=== PATIENT | female | born 1935 | race Caucasian/White ===

== ENCOUNTER 2019-09-08 16:25 | Emergency (ER) | payer MEDICARE ==
[2019-09-08 16:57] LABS: Absolute Neutrophil Ct (ANC) 4.42 (1.4-6.9); BASOPHIL % 0.3 % (0.0-0.4); Basophil (Absolute #) 0.02 (0-0.4); Eosinophil % 1.4 % (0.00-5.0); Eosinophil (Absolute #) 0.09 (0-0.5); Hematocrit 37.5 % (35-47); Hemoglobin 12.4 gm/dl (12.0-16.0); Lymphocyte (Absolute #) 1.49 (1.0-4.6); Lymphocytes % 23.1 % (24.0-44.0); Mean Cell Volume 91.5 fl (78-100); Mean Corpuscular Hemoglobin 30.2 pg (26-32); Mean Corpuscular Hgb Concent. 33.1 g/dl (32-36); Monocyte (Absolute #) 0.44 (0.0-1.3); Monocytes % 6.8 % (0.0-12.0); Neutrophil % 68.4 % (36.0-66.0); Platelet Count 205 K/mm3 (150-450); Red Cell Distribution Width 13.4 % (11.5-14.0); White Blood Count 6.5 K/mm3 (4.0-10.5)
[2019-09-08 17:09] LABS: ALBUMIN 4.4 g/dL (3.5-5.0); ANION GAP 14.5 MEQ/L (5-15); BILIRUBIN,TOTAL 0.4 mg/dL (0.2-1.3); Calcium 8.9 mg/dL (8.4-10.2); Creatinine 1 1.31 mg/dL (0.52-1.04); Potassium 4.3 mmol/L (3.5-5.1); Total Protein 7.5 g/dL (6.3-8.2)
--- NOTE | 2019-09-08 17:25 | ERPHSYRPT ---
- History of Present Illness Time Seen by Provider: 09/08/19 16:27 Historian: patient Exam Limitations: no limitations Patient Subjective Stated Complaint: abd pain x 3-4 days/constipation x multiple weeks Triage Nursing Assessment: pt to ED c/o RLQ pain x 3-4 days and constipation x 1 -2 weeks. 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 pain rates 7/10 that does not worsen with palp or radiate. pain worsens with ambulation and position changes. denies NV. audible bowel sounds in all 4 quads , active. heart sounds clear, lung sounds clear and equal bilat, A&Ox3, < 3 sec cap refil. Physician History: Patient is here with right lower quadrant pain. Has been going on for 1 week. No falls no trauma. Patient also describes constipation. States that it is nonradiating. No other injuries. No history of small bowel injury, other abdominal surgery. She still has her appendix and gallbladder. She is not been able to see her PCP. She did call Dr. Riggs's office today. Was sent into the emergency department. Location: RLQ pain Quality: sharp Radiation: none Severity: moderate Duration: 1 week Timing: gradual Modifying factors/associated signs and symptoms: no other injuries or falls Allergies/Adverse Reactions: Penicillins Allergy (Verified 09/08/19 16:51) Hives codeine Adverse Reaction (Verified 09/08/19 16:51) HYPER Home Medications: Aspirin 81 gm Chew [Baby Aspirin 81 mg Chew] 81 mg PO DAILY 01/02/13 [ History] Insulin Glargine [Lantus Insulin] 12 unit SQ DAILY 01/02/13 [History] Losartan Potassium 50 mg [Cozaar 50 MG] 50 mg PO DAILY 01/02/13 [History] Nebivolol HCl 5 MG [Bystolic 5 MG] 10 mg PO HS 01/02/13 [History] Hx Tetanus, Diphtheria Vaccination/Date Given: (unknown) Hx Influenza Vaccination/Date Given: Yes Hx Pneumococcal Vaccination/Date Given: No Travel Risk - International Travel Have you traveled outside of the country in past 3 weeks: No Have you or anyone close to you been diagnosed with or: No Do your reside in a community with a known COVID-19 case?: Yes If Yes where:: [place] - Coronavirus Screening Has patient experienced Coronavirus symptoms: No - Review of Systems Constitutional: No Fever, No Chills Eyes: No Symptoms Ears, Nose, & Throat: No Symptoms Respiratory: No Cough, No Dyspnea Cardiac: No Chest Pain, No Edema, No Syncope Abdominal/Gastrointestinal: Abdominal Pain (RLQ pain ), No Nausea, No Vomiting, No Diarrhea Genitourinary Symptoms: No Dysuria Musculoskeletal: No Back Pain, No Neck Pain Skin: No Rash Neurological: No Dizziness, No Focal Weakness, No Sensory Changes Psychological: No Symptoms Endocrine: No Symptoms All Other Systems: Reviewed and Negative - Past Medical History Pertinent Past Medical History: Yes Neurological History: No Pertinent History ENT History: No Pertinent History Cardiac History: Coronary Artery Disease, Hypertension Respiratory History: No Pertinent History Endocrine Medical History: Diabetes Type II Musculoskeletal History: No Pertinent History GI Medical History: No Pertinent History History: No Pertinent History Psycho-Social History: No Pertinent History Female Reproductive Disorders: No Pertinent History Other Medical History: SKIN ALLERGY - Past Surgical History Past Surgical History: Yes Neuro Surgical History: No Pertinent History Cardiac: CABG Respiratory: No Pertinent History Gastrointestinal: No Pertinent History Genitourinary: No Pertinent History Musculoskeletal: Orthopedic Surgery Female Surgical History: No Pertinent History Other Surgical History: right ankle surgery - Social History Smoking Status: Never smoker Exposure to second hand smoke: No Drug Use: none Patient Lives Alone: No - Nursing Vital Signs Nursing Vital Signs: Initial Vital Signs Temperature 97.6 F 09/08/19 16:31 Pulse Rate 64 09/08/19 16:31 Respiratory Rate 18 09/08/19 16:31 Blood Pressure 215/87 09/08/19 16:31 O2 Sat by Pulse Oximetry 99 09/08/19 16:31 Pain Scale Pain Intensity 6 - Physical Exam General Appearance: no apparent distress, alert Eye Exam: PERRL/EOMI, eyes nml inspection Ears, Nose, Throat Exam: normal ENT inspection, pharynx normal, moist mucous membranes Neck Exam: normal inspection, non-tender, supple, full range of motion Respiratory Exam: normal breath sounds, lungs clear, No respiratory distress Cardiovascular Exam: regular rate/rhythm, normal heart sounds Gastrointestinal/Abdomen Exam: soft, tenderness, other (Lower quadrant tenderness to palpation without rebound or guarding), No mass Back Exam: normal inspection, normal range of motion, No CVA tenderness, No vertebral tenderness Extremity Exam: normal inspection, normal range of motion, pelvis stable Neurologic Exam: alert, oriented x 3, cooperative, normal mood/affect, nml cerebellar function, sensation nml, No motor deficits Skin Exam: normal color, warm, dry SpO2: 99 - Course Nursing assessment & vital signs reviewed: Yes Ordered Tests: Active Orders 24 hr Category Date Time Status IV Insertion STAT Care 09/08/19 16:42 Active Isolation, Initiate & Maintain Q12H Care 09/08/19 16:49 Active ABDOMEN AND PELVIS W/0 CONTRAS [CT] Stat Exams 09/08/19 16:43 Taken CBC W DIFF Stat Lab 09/08/19 16:42 Completed CMP Stat Lab 09/08/19 16:45 Completed LIPASE Stat Lab 09/08/19 16:45 Completed UA W/RFX UR CULTURE Stat Lab 09/08/19 17:43 Completed Lab/Rad Data: Laboratory Result Diagrams 09/08/19 16:42 09/08/19 16:45 Laboratory Results 09/08/19 09/08/19 09/08/19 Range/Units 17:43 16:45 16:42 WBC 6.5 (4.0-10.5) K/mm3 RBC 4.10 (4.1-5.4) M/mm3 Hgb 12.4 (12.0-16.0) gm/dl Hct 37.5 (35-47) % MCV 91.5 (78-100) fl MCH 30.2 (26-32) pg MCHC 33.1 (32-36) g/dl RDW 13.4 (11.5-14.0) % Plt Count 205 (150-450) K/mm3 MPV 10.0 (7.5-11.0) fl Gran % 68.4 H (36.0-66.0) % Eos # (Auto) 0.09 (0-0.5) Absolute Lymphs (auto) 1.49 (1.0-4.6) Absolute Monos (auto) 0.44 (0.0-1.3) Lymphocytes % 23.1 L (24.0-44.0) % Monocytes % 6.8 (0.0-12.0) % Eosinophils % 1.4 (0.00-5.0) % Basophils % 0.3 (0.0-0.4) % Absolute Granulocytes 4.42 (1.4-6.9) Basophils # 0.02 (0-0.4) Sodium 131 L (137-145) mmol/L Potassium 4.3 (3.5-5.1) mmol/L Chloride 95 L (98-107) mmol/L Carbon Dioxide 26 (22-30) mmol/L Anion Gap 14.5 (5-15) MEQ/L BUN 33 H (7-17) mg/dL Creatinine 1.31 H (0.52-1.04) mg/dL Estimated GFR 41.2 ML/MIN Glucose 270 H (74-106) mg/dL Calcium 8.9 (8.4-10.2) mg/dL Total Bilirubin 0.40 (0.2-1.3) mg/dL AST 24 (14-36) U/L ALT 17 (0-35) U/L Alkaline Phosphatase 68 (38-126) U/L Serum Total Protein 7.5 (6.3-8.2) g/dL Albumin 4.4 (3.5-5.0) g/dL Lipase 13 L (23-300) U/L Urine Color YELLOW (YELLOW) Urine Appearance CLEAR (CLEAR) Urine pH 6.0 (5-6) Ur Specific [place] 1.010 (1.005-1.025) Urine Protein NEGATIVE (Negative) Urine Ketones NEGATIVE (NEGATIVE) Urine Blood NEGATIVE (0-5) Marito/ul Urine Nitrite NEGATIVE (NEGATIVE) Urine Bilirubin NEGATIVE (NEGATIVE) Urine Urobilinogen NEGATIVE (0-1) mg/dL Ur Leukocyte Esterase NEGATIVE (NEGATIVE) Urine WBC (Auto) NONE (0-5) /HPF Urine RBC (Auto) NONE (0-2) /HPF U Hyaline Cast (Auto) 0-2 (0-2) /LPF U Epithel Cells (Auto) NONE (FEW) /HPF Urine Bacteria (Auto) NONE (NEGATIVE) /HPF Urine Culture Reflexed NO (NO) Urine Glucose >=500 (NEGATIVE) mg/dL - Progress Progress: improved Progress Note: 09/08/19 17:25 differential diagnosis includes kidney stone, compression fracture, infection, UTI, triple AAA - basic labs including: CBC, lipase, CMP, UA - insert IV for fluids, pain meds, nausea control - consider imaging: CT ab/pelvis 09/08/19 18:46 Labs are unremarkable at this point time. CT scan still pending. Patient was checked out to Dr. Rivera. He will follow-up on CT scan, abdominal reexam. Patient's blood pressure, blood glucose was rechecked. Blood glucose was 247. We will continue to monitor closely. - Departure Departure Disposition: Home Clinical Impression: Abdominal pain Condition: Stable Critical Care Time: No Referrals: RD RIGGS [Primary Care Provider] - Instructions: Acute Abdomen (Belly Pain), Adult (DC)
[2019-09-08 17:53] LABS: Appearance CLEAR (CLEAR); Bilirubin NEGATIVE (NEGATIVE); Blood NEGATIVE Ery/ul (0-5); Glucose >=500 mg/dL (NEGATIVE); Hyaline Casts 0-2 /LPF (0-2); Ketones NEGATIVE (NEGATIVE); Leukocyte Esterase NEGATIVE (NEGATIVE); Nitrite NEGATIVE (NEGATIVE); Protein,Urine Dip NEGATIVE (Negative); Urobilinogen NEGATIVE mg/dL (0-1)
[2019-09-08 18:12] VITALS: PULSE 53
[2019-09-08 19:21] VITALS: BP 202/81; O2SAT 100
--- NOTE | 2019-09-09 09:18 | XRAY ---
Indication: Right lower abdomen/pelvic pain radiating right leg. Multiple contiguous axial images obtained through the abdomen and pelvis without contrast as ordered. Comparison: None Lung bases are clear. Heart is not enlarged. Noncontrasted stomach and bowel loops appear nonobstructed. Normal appendix. Mild diffuse scattered colonic fecal debris throughout. No free fluid/air. Remaining liver, gallbladder, pancreas, spleen, adrenal glands, kidneys, ureters, bladder, and uterus appear unremarkable for noncontrast exam. Heavy scattered aortoiliac calcifications without AAA. Osseous structures intact with osteopenia and mild degenerative changes throughout the spine and both hips. No ventral or inguinal hernias. Impression: 1. Mild diffuse fecal stasis without obstruction, heavy scattered arteriosclerotic disease, and chronic bony findings. 2. Remaining CT abdomen/pelvis without contrast exam is negative.
== END 2019-09-08 19:21 | disposition home or self-care (01) ==
LOC: ED 16:25
DX: R10.9 Unspecified abdominal pain (principal); I10 Essential (primary) hypertension; I25.810 Atherosclerosis of coronary artery bypass graft(s) without angina pectoris; E11.9 Type 2 diabetes mellitus without complications; Z79.899 Other long term (current) drug therapy
CPT/HCPCS: 36000; 36415; 74176; 80053; 81001; 82962; 83690; 85025; 99284

== ENCOUNTER 2022-03-30 12:16 | Observation (INO) | payer MEDICARE ==
--- NOTE | 2022-03-30 12:59 | ERPHSYRPT ---
- History of Present Illness Time Seen by Provider: 03/30/22 12:56 Exam Limitations: no limitations Patient Subjective Stated Complaint: pt here for cough, congestion, chills, weakness for 2 days now, she has not had her meds today, Triage Nursing Assessment: pt alert,[place], resp easy, has dry cough, nasal congestion, skin w/d/p. no edema noted Physician History: Patient is 86-year-old female presents to our ED via EMS for evaluation of generalized weakness. Patient states she awoke this morning experiencing weakness chills and "the shakes". Patient states she has been experiencing a dry cough and congestion. Symptoms are moderate to severe intensity. No specific worsening improving factors. No exposure to obvious sick contacts. Patient denies pain. She voices no other complaints or concerns at this time. Portions of this note were created with voice recognition technology. There may be grammatical, spelling, punctuation or sound alike errors Timing/Duration: today Severity: moderate Modifying Factors: Improves With: nothing Associated Symptoms: denies symptoms Allergies/Adverse Reactions: Penicillins Allergy (Verified 03/30/22 12:25) Hives codeine Adverse Reaction (Verified 03/30/22 12:25) HYPER Home Medications: Aspirin 81 gm Chew [Baby Aspirin 81 mg Chew] 81 mg PO DAILY 01/02/13 [History] Insulin Glargine [Lantus Insulin] 12 unit SQ DAILY 01/02/13 [History] Losartan Potassium 50 mg [Cozaar 50 MG] 50 mg PO DAILY 01/02/13 [History] Nebivolol HCl 5 MG [Bystolic 5 MG] 10 mg PO HS 01/02/13 [History] Hx Tetanus, Diphtheria Vaccination/Date Given: (unknown) Hx Influenza Vaccination/Date Given: No Hx Pneumococcal Vaccination/Date Given: No Travel Risk - International Travel Have you traveled outside of the country in past 3 weeks: No - Coronavirus Screening Are you exhibiting any of the following symptoms?: Yes Symptoms: Cough: New Onset - Vaccine Status Have you recieved a Covid-19 vaccination: Yes Tool And Die Engineer: Unknown - Vaccination Dates Date of 2cond Vaccination (if applicable): 2020 Dates if Unknown: ? - Review of Systems Constitutional: No Symptoms, No Fever, No Chills Eyes: No Symptoms Ears, Nose, & Throat: No Symptoms Respiratory: No Symptoms, No Cough, No Dyspnea Cardiac: No Symptoms, No Chest Pain, No Edema, No Syncope Abdominal/Gastrointestinal: No Symptoms, No Abdominal Pain, No Nausea, No Vomiting, No Diarrhea Genitourinary Symptoms: No Symptoms, No Dysuria Musculoskeletal: No Symptoms, No Back Pain, No Neck Pain Skin: No Symptoms, No Rash Neurological: No Symptoms, No Dizziness, No Focal Weakness, No Sensory Changes Psychological: No Symptoms Endocrine: No Symptoms Hematologic/Lymphatic: No Symptoms Immunological/Allergic: No Symptoms All Other Systems: Reviewed and Negative - Past Medical History Pertinent Past Medical History: Yes Neurological History: No Pertinent History ENT History: No Pertinent History Cardiac History: Coronary Artery Disease, Hypertension Respiratory History: No Pertinent History Endocrine Medical History: Diabetes Type II Musculoskeletal History: No Pertinent History GI Medical History: No Pertinent History History: No Pertinent History Psycho-Social History: No Pertinent History Female Reproductive Disorders: No Pertinent History Other Medical History: SKIN ALLERGY - Past Surgical History Past Surgical History: Yes Neuro Surgical History: No Pertinent History Cardiac: CABG Respiratory: No Pertinent History Gastrointestinal: No Pertinent History Genitourinary: No Pertinent History Musculoskeletal: Orthopedic Surgery Female Surgical History: No Pertinent History Other Surgical History: right ankle surgery - Social History Smoking Status: Never smoker Exposure to second hand smoke: No Drug Use: none Patient Lives Alone: No - Nursing Vital Signs Nursing Vital Signs: Initial Vital Signs Temperature 97.2 F 03/30/22 12:23 Pulse Rate 71 03/30/22 12:23 Respiratory Rate 18 03/30/22 12:23 Blood Pressure 222/84 03/30/22 12:23 O2 Sat by Pulse Oximetry 99 03/30/22 12:23 Pain Scale Pain Intensity 0 - Physical Exam General Appearance: no apparent distress, alert, other (Patient lying in bed. Rigors observed) Eye Exam: PERRL/EOMI, eyes nml inspection Ears, Nose, Throat Exam: normal ENT inspection, TMs normal, pharynx normal, moist mucous membranes Neck Exam: normal inspection, non-tender, supple, full range of motion Respiratory Exam: normal breath sounds, lungs clear, airway intact, No respiratory distress Cardiovascular Exam: regular rate/rhythm, normal heart sounds, normal peripheral pulses Gastrointestinal/Abdomen Exam: soft, normal bowel sounds, No tenderness, No mass Back Exam: normal inspection, normal range of motion, No CVA tenderness, No vertebral tenderness Extremity Exam: normal inspection, normal range of motion, pelvis stable Neurologic Exam: alert, oriented x 3, cooperative, normal mood/affect, nml cerebellar function, nml station & gait, sensation nml, No motor deficits Skin Exam: normal color, warm, dry, No rash Lymphatic Exam: No adenopathy SpO2 Interpretation: normal SpO2: 96 O2 Delivery: Room Air - Course Nursing assessment & vital signs reviewed: Yes - Radiology Exams Chest X-ray Interpretation: Teleradiologist Report (Hyperinflated lungs, CABG, osteopenia degenerative changes) Ordered Tests: Active Orders 24 hr Category Date Time Status Health Technician Hearing STAT Care 03/30/22 12:54 Active EKG-ER Only STAT Care 03/30/22 12:53 Active IV Insertion STAT Care 03/30/22 12:53 Active Pulse Oximetry (ED) STAT Care 03/30/22 12:53 Active CHEST 1 VIEW (PORTABLE) Stat Exams 03/30/22 12:54 Completed CBC W DIFF Stat Lab 03/30/22 13:00 Completed CMP Stat Lab 03/30/22 13:00 Completed TROPONIN Q4H Lab 03/30/22 13:00 Completed TROPONIN Q4H Lab 03/30/22 15:13 Completed TROPONIN Q4H Lab 03/30/22 21:00 Ordered UA W/RFX CULTURE Stat Lab 03/30/22 13:52 Completed Medication Summary Generic Name Dose Route Start Last Admin Trade Name Freq PRN Reason Stop Dose Admin Sodium Chloride 1,000 mls @ 100 mls/hr 03/30/22 13:00 03/30/22 13:42 Sodium Chloride 0.9% 1000 Ml IV 04/29/22 12:59 100 mls/hr .Q10H CLARISA Administration Lab/Rad Data: Laboratory Result Diagrams 03/30/22 13:00 03/30/22 13:00 Laboratory Results 03/30/22 03/30/22 03/30/22 Range/Units 15:13 13:52 13:00 WBC (4.0-10.5) x10^3/uL RBC (4.1-5.4) x10^6/uL Hgb (12.0-16.0) g/dL Hct (35-47) % MCV (78-100) fL MCH (26-32) pg MCHC (32-36) g/dL RDW (11.5-14.0) % Plt Count (150-450) x10^3/uL MPV (7.5-11.0) fL Gran % (36.0-66.0) % Immature Gran % (Auto) (0.00-0.4) % Nucleat RBC Rel Count (0.00-0.1) % Eos # (Auto) (0-0.5) x10^3/uL Immature Gran # (Auto) (0.00-0.03) x10^3u/L Absolute Lymphs (auto) (1.0-4.6) x10^3/uL Absolute Monos (auto) (0.0-1.3) x10^3/uL Absolute Nucleated RBC (0.00-0.01) x10^3u/L Lymphocytes % (24.0-44.0) % Monocytes % (0.0-12.0) % Eosinophils % (0.00-5.0) % Basophils % (0.0-0.4) % Absolute Granulocytes (1.4-6.9) x10^3/uL Basophils # (0-0.4) x10^3/uL Sodium (137-145) mmol/L Potassium (3.5-5.1) mmol/L Chloride (98-107) mmol/L Carbon Dioxide (22-30) mmol/L Anion Gap (5-15) MEQ/L BUN (7-17) mg/dL Creatinine (0.52-1.04) mg/dL Estimated GFR ML/MIN Glucose (74-106) mg/dL Calcium (8.4-10.2) mg/dL Total Bilirubin (0.2-1.3) mg/dL AST (14-36) U/L ALT (0-35) U/L Alkaline Phosphatase (38-126) U/L Troponin I 0.031 0.020 (0.000-0.034) ng/mL Serum Total Protein (6.3-8.2) g/dL Albumin (3.5-5.0) g/dL Urinalys Dipstick Clnc MAIN LAB Urine Color YELLOW (YELLOW) Urine Appearance CLEAR (CLEAR) Urine pH 6.5 (5-6) Ur Specific [place] 1.010 (1.005-1.025) POC Urine Protein Conf NEGATIVE (Negative) Urine Ketones TRACE A (NEGATIVE) Urine Nitrite NEGATIVE (NEGATIVE) Urine Bilirubin NEGATIVE (NEGATIVE) Urine Urobilinogen 0.2 (0-1) mg/dL Urine Leukocytes TRACE A (NEGATIVE) Urine WBC (Auto) NONE (0-5) /HPF Urine RBC (Auto) 0-2 (0-2) /HPF U Epithel Cells (Auto) NONE (FEW) /HPF Urine Bacteria (Auto) NONE (NEGATIVE) /HPF Urine RBC TRACE-LYSED A (0-5) Marito/ul Urine Mucus (Auto) SLIGHT A (NEGATIVE) /HPF Ur Culture Indicated? NO Urine Glucose 100 A (NEGATIVE) mg/dL Influenza Type A Ag (NEGATIVE) Influenza Type B Ag (NEGATIVE) RSV (PCR) (Negative) SARS-CoV-2 (PCR) (NEGATIVE) 03/30/22 03/30/22 03/30/22 Range/Units 13:00 13:00 13:00 WBC 6.7 (4.0-10.5) x10^3/uL RBC 3.78 L (4.1-5.4) x10^6/uL Hgb 11.4 L (12.0-16.0) g/dL Hct 35.0 (35-47) % MCV 92.6 (78-100) fL MCH 30.2 (26-32) pg MCHC 32.6 (32-36) g/dL RDW 13.2 (11.5-14.0) % Plt Count 211 (150-450) x10^3/uL MPV 10.0 (7.5-11.0) fL Gran % 72.0 H (36.0-66.0) % Immature Gran % (Auto) 0.1 (0.00-0.4) % Nucleat RBC Rel Count 0.0 (0.00-0.1) % Eos # (Auto) 0.20 (0-0.5) x10^3/uL Immature Gran # (Auto) 0.01 (0.00-0.03) x10^3u/L Absolute Lymphs (auto) 1.19 (1.0-4.6) x10^3/uL Absolute Monos (auto) 0.45 (0.0-1.3) x10^3/uL Absolute Nucleated RBC 0.00 (0.00-0.01) x10^3u/L Lymphocytes % 17.8 L (24.0-44.0) % Monocytes % 6.7 (0.0-12.0) % Eosinophils % 3.0 (0.00-5.0) % Basophils % 0.4 (0.0-0.4) % Absolute Granulocytes 4.80 (1.4-6.9) x10^3/uL Basophils # 0.03 (0-0.4) x10^3/uL Sodium 128 L (137-145) mmol/L Potassium 3.8 (3.5-5.1) mmol/L Chloride 96 L (98-107) mmol/L Carbon Dioxide 24 (22-30) mmol/L Anion Gap 11.8 (5-15) MEQ/L BUN 21 H (7-17) mg/dL Creatinine 1.08 H (0.52-1.04) mg/dL Estimated GFR 51.2 ML/MIN Glucose 201 H (74-106) mg/dL Calcium 8.7 (8.4-10.2) mg/dL Total Bilirubin 0.50 (0.2-1.3) mg/dL AST 29 (14-36) U/L ALT 14 (0-35) U/L Alkaline Phosphatase 98 (38-126) U/L Troponin I (0.000-0.034) ng/mL Serum Total Protein 7.1 (6.3-8.2) g/dL Albumin 4.1 (3.5-5.0) g/dL Urinalys Dipstick Clnc Urine Color (YELLOW) Urine Appearance (CLEAR) Urine pH (5-6) Ur Specific [place] (1.005-1.025) POC Urine Protein Conf (Negative) Urine Ketones (NEGATIVE) Urine Nitrite (NEGATIVE) Urine Bilirubin (NEGATIVE) Urine Urobilinogen (0-1) mg/dL Urine Leukocytes (NEGATIVE) Urine WBC (Auto) (0-5) /HPF Urine RBC (Auto) (0-2) /HPF U Epithel Cells (Auto) (FEW) /HPF Urine Bacteria (Auto) (NEGATIVE) /HPF Urine RBC (0-5) Marito/ul Urine Mucus (Auto) (NEGATIVE) /HPF Ur Culture Indicated? Urine Glucose (NEGATIVE) mg/dL Influenza Type A Ag NEGATIVE (NEGATIVE) Influenza Type B Ag NEGATIVE (NEGATIVE) RSV (PCR) NEGATIVE (Negative) SARS-CoV-2 (PCR) NEGATIVE (NEGATIVE) - Progress Progress: improved Progress Note: Patient reassessed. Patient feels better. Work-up reveals hyponatremia. IV fluids infusing. COVID RSV influenza negative. Patient's troponins are trending upward. Patient has a history of diabetes and CABG. this elevated troponin may be due to the elevated blood pressure as patient's blood pressure upon arrival was 222 systolic. Patient received her a.m. meds which she did not take today. Blood pressure trending downward now. Patient neurologically intact. In light of her hypertension elevated troponin hyponatremia history of CABG and diabetes we will admit patient for further evaluation and treatment. We will continue to trend patient's troponin. Patient received nitroglycerin w hich will help with her blood pressure. Patient also received aspirin. Case discussed with Dr. Pena who accepts admission to observation. Plan of care discussed with patient. She agrees to admission at [facility] for further evaluation and treatment. Portions of this note were created with voice recognition technology. There may be grammatical, spelling, punctuation or sound alike errors 03/30/22 16:13 Discussed with .: Betsey Will see patient in: hospital (observation) Counseled pt/family regarding: lab results, diagnosis, rad results - Departure Departure Disposition: Observation Clinical Impression: Hyponatremia, Hypertensive emergency, Elevated troponin Condition: Stable Critical Care Time: No Referrals: AFTAB HOLDER, [Primary Care Provider] - Follow up/PCP as directed
[2022-03-30 13:10] LABS: Basophil (Absolute #) 0.03 x10^3/uL (0-0.4); Hemoglobin 11.4 g/dL (12.0-16.0); Lymphocyte (Absolute #) 1.19 x10^3/uL (1.0-4.6); Lymphocytes % 17.8 % (24.0-44.0); Mean Cell Volume 92.6 fL (78-100); Mean Corpuscular Hemoglobin 30.2 pg (26-32); Mean Corpuscular Hgb Concent. 32.6 g/dL (32-36); Monocyte (Absolute #) 0.45 x10^3/uL (0.0-1.3); Monocytes % 6.7 % (0.0-12.0); Platelet Count 211 x10^3/uL (150-450); Red Blood Count 3.78 x10^6/uL (4.1-5.4); Red Cell Distribution Width 13.2 % (11.5-14.0); White Blood Count 6.7 x10^3/uL (4.0-10.5)
--- NOTE | 2022-03-30 13:18 | XRAY ---
Indication: Pneumonia. Comparison: October 14, 2021 Portable chest remains hyperinflated and clear. Heart not enlarged again with CABG. Bony thorax intact again with mild osteopenia and degenerative changes. No new/acute findings.
[2022-03-30] MEDS: Sodium Chloride 0.9% 1000 ML 1,000 ML IV SCH ×2 (13:42→17:49)
[2022-03-30 13:46] LABS: INFLUENZA A NEGATIVE (NEGATIVE); INFLUENZA B NEGATIVE (NEGATIVE); RESPIRATORY SYNCTIAL VIRUS NEGATIVE (Negative); SARS-CoV-2 Xpert Express NEGATIVE (NEGATIVE)
[2022-03-30 14:08] LABS: ALBUMIN 4.1 g/dL (3.5-5.0); BILIRUBIN,TOTAL 0.5 mg/dL (0.2-1.3); Calcium 8.7 mg/dL (8.4-10.2); Creatinine 1 1.08 mg/dL (0.52-1.04); EST GLOMERULAR FILTRATION RATE 51.2 ML/MIN; Potassium 3.8 mmol/L (3.5-5.1); Total Protein 7.1 g/dL (6.3-8.2)
[2022-03-30 14:09] LABS: ANION GAP 11.8 MEQ/L (5-15)
[2022-03-30 14:46] LABS: Appearance CLEAR (CLEAR); Bilirubin NEGATIVE (NEGATIVE); Dipstick done @ ? MAIN LAB; Glucose 100 mg/dL (NEGATIVE); Ketones TRACE (NEGATIVE); Nitrite NEGATIVE (NEGATIVE); Ph 6.5 (5-6); Protein,Urine Dip NEGATIVE (Negative); RBC TRACE-LYSED Ery/ul (0-5); Urobilinogen 0.2 mg/dL (0-1)
[2022-03-30 14:47] LABS: Mucus SLIGHT /HPF (NEGATIVE); RBC 0-2 /HPF (0-2)
[2022-03-30 14:53] LABS: Urine Cultured Indicated? NO
[2022-03-30] MEDS ORDERED: NITRO-BID 2% UD PACKETS TOP ONE (16:09)
[2022-03-30] MEDS ORDERED: BABY ASPIRIN 81 MG CHEW PO ONE (16:09)
[2022-03-30] MEDS ORDERED: BABY ASPIRIN 81 MG CHEW ONE (16:13)
[2022-03-30] MEDS ORDERED: NITRO-BID 2% UD PACKETS ONE (16:13)
[2022-03-30] MEDS ORDERED: TYLENOL 325 MG PO PRN (16:42)
[2022-03-30] MEDS ORDERED: MAALOX ES 30 ML UNIT DOSE PO PRN (16:42)
[2022-03-30] MEDS ORDERED: Zofran 4 MG/2 ML VIAL IV PRN (16:42)
[2022-03-30] MEDS ORDERED: MILK OF MAGNESIA 30 ML PO PRN (16:42)
[2022-03-30] MEDS ORDERED: Senokot-S Tablet PO PRN (16:42)
[2022-03-30] MEDS ORDERED: xanAX 0.5 MG PO PRN (18:27)
[2022-03-30] MEDS ORDERED: Lopressor 25MG Tab PO ONE (18:28)
[2022-03-30] MEDS: HUMALOG SQ PRN ×2 (18:48→23:02)
[2022-03-31] MEDS: Sodium Chloride 0.9% 1000 ML 1,000 ML IV SCH (03:04)
[2022-03-31 06:20] LABS: Risk Ratio 3.4
[2022-03-31 07:40] LABS: Absolute Neutrophil Ct (ANC) 4.13 x10^3/uL (1.4-6.9); Basophil (Absolute #) 0.03 x10^3/uL (0-0.4); Eosinophil % 4.5 % (0.00-5.0); Eosinophil (Absolute #) 0.29 x10^3/uL (0-0.5); Hematocrit 31.4 % (35-47); Hemoglobin 10.2 g/dL (12.0-16.0); Lymphocytes % 23.1 % (24.0-44.0); Mean Cell Volume 93.2 fL (78-100); Mean Corpuscular Hemoglobin 30.3 pg (26-32); Mean Corpuscular Hgb Concent. 32.5 g/dL (32-36); Mean Platelet Volume 10.6 fL (7.5-11.0); Monocyte (Absolute #) 0.52 x10^3/uL (0.0-1.3); Neutrophil % 63.7 % (36.0-66.0); Platelet Count 207 x10^3/uL (150-450); Red Blood Count 3.37 x10^6/uL (4.1-5.4); Red Cell Distribution Width 13.2 % (11.5-14.0); White Blood Count 6.5 x10^3/uL (4.0-10.5)
[2022-03-31 07:46] LABS: ALBUMIN 3.2 g/dL (3.5-5.0); ANION GAP 10.3 MEQ/L (5-15); BILIRUBIN,TOTAL 0.4 mg/dL (0.2-1.3); Calcium 7.9 mg/dL (8.4-10.2); Creatinine 1 0.96 mg/dL (0.52-1.04); EST GLOMERULAR FILTRATION RATE 58.7 ML/MIN; Potassium 4.1 mmol/L (3.5-5.1); Total Protein 5.9 g/dL (6.3-8.2)
[2022-03-31 08:11] LABS: TROPONIN 0.022 ng/mL (0.000-0.034)
[2022-03-31 09:10] LABS: TSH, 3RD Generation 2.26 mIU/L (0.47-4.68)
[2022-03-31] MEDS ORDERED: Lantus Insulin SQ SCH (10:00)
[2022-03-31] MEDS ORDERED: BABY ASPIRIN 81 MG CHEW PO SCH (10:00)
[2022-03-31] MEDS ORDERED: ECOTRIN 81 MG PO SCH (10:00)
[2022-03-31] MEDS ORDERED: NORVASC 5 MG PO SCH (10:00)
[2022-03-31] MEDS ORDERED: Lopressor 25MG Tab PO SCH (10:00)
[2022-03-31 11:55] VITALS: BP 146/65; PULSE 60; O2SAT 98
[2022-03-31] MEDS: HUMALOG SQ PRN (13:12)
--- NOTE | 2022-03-31 14:01 | PCM.SSS ---
History of Present Illness - Chief Complaint Chief Complaint: hyponatremia, hypertensive emergency, elevated troponin History of Present Illness: is a 86 year old female who present to ER C/O feeling weak and "having the shakes". States sinus congestion x 1 week and took a Coricidin then woke feeling badly and called 911. Denies fever or dyspnea or chest pain. PMHX includes HTN,CAD/CABG, DM2 . Patient states she did not take her meds today and B/P was 222 systolic in ER. 2nd troponin was increased from the 1st but not elevated. Home meds given in ER and Nitro paste Patient is admitted to [facility] OBS> - Review of Systems Constitutional: Other (rigor) Eyes: No Symptoms Ears, Nose, & Throat: Nose Congestion, Sinus Drainage Respiratory: No Symptoms Cardiac: No Symptoms Abdominal/Gastrointestinal: No Symptoms Genitourinary Symptoms: No Symptoms Musculoskeletal: No Symptoms Neurological: No Dizziness, No Focal Weakness, No Gait Changes Psychological: No Symptoms Endocrine: No Symptoms, Other (diabetes controlled) Hematologic/Lymphatic: No Symptoms Immunological/Allergic: Other (allergies) Medications & Allergies Home Medications: Home Medication List Aspirin 81 gm Chew [Baby Aspirin 81 mg Chew] 81 mg PO DAILY 01/02/13 [History Confirmed 03/30/22] Insulin Glargine [Lantus Insulin] 12 unit SQ DAILY 01/02/13 [History Confirmed 03/30/22] Amlodipine Besylate 5 mg [Norvasc 5 mg] 5 mg PO DAILY 03/30/22 [History Confirmed 03/30/22] Metoprolol Tartrate 25 mg [Lopressor 25MG Tab] 25 mg PO DAILY 03/30/22 [History Confirmed 03/30/22] Fluticasone Propionate [Flonase NASAL] 1 gm NS UD 30 Days #1 inhaler 03/31/22 [Rx] Allergies/Adverse Reactions: Allergies Allergy/AdvReac Type Severity Reaction Status Date / Time Penicillins Allergy Hives Verified 03/30/22 12:25 codeine AdvReac Verified 03/30/22 12:25 - Past Medical History Past Medical History: Yes Neurological History: No Pertinent History ENT History: No Pertinent History Cardiac History: Coronary Artery Disease, Hypertension Respiratory History: No Pertinent History Endocrine Medical History: Diabetes Type II Musculoskelatal History: No Pertinent History GI Medical History: No Pertinent History History: No Pertinent History Pyscho-Social History: No Pertinent History Reproductive Disorders: No Pertinent History Comment: SKIN cancer removed off of face - Female History Are you now?: No - Past Surgical History Past Surgical History: Yes Neuro Surgical History: No Pertinent History Cardiac History: CABG Respiratory Surgery: No Pertinent History GI Surgical History: No Pertinent History Genitourinary Surgical Hx: No Pertinent History Musculskeletal Surgical Hx: Orthopedic Surgery Female Surgical History: No Pertinent History Other Surgical History: right ankle surgery - Social History Smoking Status: Never smoker Exposure to second hand smoke: No Alcohol: None Drug Use: none - Physical Exam Vital Signs: Vital Signs - 24 hr Temp Pulse Resp BP Pulse Ox 03/31/22 12:00 19 03/31/22 11:54 98.9 F 60 19 146/65 98 03/31/22 08:00 17 03/31/22 07:40 99.1 F 71 17 163/73 95 03/31/22 04:00 97.7 F 66 16 167/74 90 L 03/30/22 23:57 16 03/30/22 23:34 98.0 F 56 L 16 148/68 98 03/30/22 20:00 66 152/70 03/30/22 17:00 71 16 194/87 96 03/30/22 16:44 97.5 F 73 15 228/95 97 03/30/22 16:14 96 03/30/22 16:00 64 16 184/79 98 General Appearance: no apparent distress Neurologic Exam: alert, oriented x 3, cooperative, normal mood/affect Eye Exam: eyes nml inspection Ears, Nose, Throat Exam: moist mucous membranes, other (PND,mild nasal congestion. [place]) Neck Exam: normal inspection Respiratory Exam: normal breath sounds Cardiovascular Exam: regular rate/rhythm Gastrointestinal/Abdomen Exam: soft, normal bowel sounds Back Exam: normal inspection Extremity Exam: normal inspection, No calf tenderness, No pedal edema Skin Exam: normal color, warm, dry Results - Labs Lab/Micro Results: Lab Results-Last 24 Hours 03/30/22 03/30/22 03/30/22 Range/Units 13:00 13:52 15:13 WBC (4.0-10.5) x10^3/uL RBC (4.1-5.4) x10^6/uL Hgb (12.0-16.0) g/dL Hct (35-47) % MCV (78-100) fL MCH (26-32) pg MCHC (32-36) g/dL RDW (11.5-14.0) % Plt Count (150-450) x10^3/uL MPV (7.5-11.0) fL Gran % (36.0-66.0) % Immature Gran % (Auto) (0.00-0.4) % Nucleat RBC Rel Count (0.00-0.1) % Eos # (Auto) (0-0.5) x10^3/uL Immature Gran # (Auto) (0.00-0.03) x10^3u/L Absolute Lymphs (auto) (1.0-4.6) x10^3/uL Absolute Monos (auto) (0.0-1.3) x10^3/uL Absolute Nucleated RBC (0.00-0.01) x10^3u/L Lymphocytes % (24.0-44.0) % Monocytes % (0.0-12.0) % Eosinophils % (0.00-5.0) % Basophils % (0.0-0.4) % Absolute Granulocytes (1.4-6.9) x10^3/uL Basophils # (0-0.4) x10^3/uL Sodium 128 L (137-145) mmol/L Potassium 3.8 (3.5-5.1) mmol/L Chloride 96 L (98-107) mmol/L Carbon Dioxide 24 (22-30) mmol/L Anion Gap 11.8 (5-15) MEQ/L BUN 21 H (7-17) mg/dL Creatinine 1.08 H (0.52-1.04) mg/dL Estimated GFR 51.2 ML/MIN Glucose 201 H (74-106) mg/dL POC Glucometer (74 to 106) mg/dL Calcium 8.7 (8.4-10.2) mg/dL Magnesium (1.6-2.3) mg/dL Total Bilirubin 0.50 (0.2-1.3) mg/dL AST 29 (14-36) U/L ALT 14 (0-35) U/L Alkaline Phosphatase 98 (38-126) U/L Troponin I 0.031 (0.000-0.034) ng/mL Serum Total Protein 7.1 (6.3-8.2) g/dL Albumin 4.1 (3.5-5.0) g/dL Triglycerides (30-150) mg/dL Cholesterol (50-200) mg/dL LDL Cholesterol (30-100) mg/dL HDL Cholesterol (40-60) mg/dL Heart Disease Risk Ratio Vitamin B12 (239-931) pg/mL TSH 3rd Generation (0.47-4.68) mIU/L Urinalys Dipstick Clnc MAIN LAB Urine Color YELLOW (YELLOW) Urine Appearance CLEAR (CLEAR) Urine pH 6.5 (5-6) Ur Specific [place] 1.010 (1.005-1.025) POC Urine Protein Conf NEGATIVE (Negative) Urine Ketones TRACE A (NEGATIVE) Urine Nitrite NEGATIVE (NEGATIVE) Urine Bilirubin NEGATIVE (NEGATIVE) Urine Urobilinogen 0.2 (0-1) mg/dL Urine Leukocytes TRACE A (NEGATIVE) Urine WBC (Auto) NONE (0-5) /HPF Urine RBC (Auto) 0-2 (0-2) /HPF U Epithel Cells (Auto) NONE (FEW) /HPF Urine Bacteria (Auto) NONE (NEGATIVE) /HPF Urine RBC TRACE-LYSED A (0-5) Marito/ul Urine Mucus (Auto) SLIGHT A (NEGATIVE) /HPF Ur Culture Indicated? NO Urine Glucose 100 A (NEGATIVE) mg/dL 03/30/22 03/30/22 03/30/22 Range/Units 17:31 21:24 21:30 WBC (4.0-10.5) x10^3/uL RBC (4.1-5.4) x10^6/uL Hgb (12.0-16.0) g/dL Hct (35-47) % MCV (78-100) fL MCH (26-32) pg MCHC (32-36) g/dL RDW (11.5-14.0) % Plt Count (150-450) x10^3/uL MPV (7.5-11.0) fL Gran % (36.0-66.0) % Immature Gran % (Auto) (0.00-0.4) % Nucleat RBC Rel Count (0.00-0.1) % Eos # (Auto) (0-0.5) x10^3/uL Immature Gran # (Auto) (0.00-0.03) x10^3u/L Absolute Lymphs (auto) (1.0-4.6) x10^3/uL Absolute Monos (auto) (0.0-1.3) x10^3/uL Absolute Nucleated RBC (0.00-0.01) x10^3u/L Lymphocytes % (24.0-44.0) % Monocytes % (0.0-12.0) % Eosinophils % (0.00-5.0) % Basophils % (0.0-0.4) % Absolute Granulocytes (1.4-6.9) x10^3/uL Basophils # (0-0.4) x10^3/uL Sodium (137-145) mmol/L Potassium (3.5-5.1) mmol/L Chloride (98-107) mmol/L Carbon Dioxide (22-30) mmol/L Anion Gap (5-15) MEQ/L BUN (7-17) mg/dL Creatinine (0.52-1.04) mg/dL Estimated GFR ML/MIN Glucose (74-106) mg/dL POC Glucometer 307 H 278 H (74 to 106) mg/dL Calcium (8.4-10.2) mg/dL Magnesium (1.6-2.3) mg/dL Total Bilirubin (0.2-1.3) mg/dL AST (14-36) U/L ALT (0-35) U/L Alkaline Phosphatase (38-126) U/L Troponin I 0.029 (0.000-0.034) ng/mL Serum Total Protein (6.3-8.2) g/dL Albumin (3.5-5.0) g/dL Triglycerides (30-150) mg/dL Cholesterol (50-200) mg/dL LDL Cholesterol (30-100) mg/dL HDL Cholesterol (40-60) mg/dL Heart Disease Risk Ratio Vitamin B12 (239-931) pg/mL TSH 3rd Generation (0.47-4.68) mIU/L Urinalys Dipstick Clnc Urine Color (YELLOW) Urine Appearance (CLEAR) Urine pH (5-6) Ur Specific [place] (1.005-1.025) POC Urine Protein Conf (Negative) Urine Ketones (NEGATIVE) Urine Nitrite (NEGATIVE) Urine Bilirubin (NEGATIVE) Urine Urobilinogen (0-1) mg/dL Urine Leukocytes (NEGATIVE) Urine WBC (Auto) (0-5) /HPF Urine RBC (Auto) (0-2) /HPF U Epithel Cells (Auto) (FEW) /HPF Urine Bacteria (Auto) (NEGATIVE) /HPF Urine RBC (0-5) Marito/ul Urine Mucus (Auto) (NEGATIVE) /HPF Ur Culture Indicated? Urine Glucose (NEGATIVE) mg/dL 03/31/22 03/31/22 03/31/22 Range/Units 04:30 04:30 04:30 WBC 6.5 (4.0-10.5) x10^3/uL RBC 3.37 L (4.1-5.4) x10^6/uL Hgb 10.2 L (12.0-16.0) g/dL Hct 31.4 L (35-47) % MCV 93.2 (78-100) fL MCH 30.3 (26-32) pg MCHC 32.5 (32-36) g/dL RDW 13.2 (11.5-14.0) % Plt Count 207 (150-450) x10^3/uL MPV 10.6 (7.5-11.0) fL Gran % 63.7 (36.0-66.0) % Immature Gran % (Auto) 0.2 (0.00-0.4) % Nucleat RBC Rel Count 0.0 (0.00-0.1) % Eos # (Auto) 0.29 (0-0.5) x10^3/uL Immature Gran # (Auto) 0.01 (0.00-0.03) x10^3u/L Absolute Lymphs (auto) 1.50 (1.0-4.6) x10^3/uL Absolute Monos (auto) 0.52 (0.0-1.3) x10^3/uL Absolute Nucleated RBC 0.00 (0.00-0.01) x10^3u/L Lymphocytes % 23.1 L (24.0-44.0) % Monocytes % 8.0 (0.0-12.0) % Eosinophils % 4.5 (0.00-5.0) % Basophils % 0.5 (0.0-0.4) % Absolute Granulocytes 4.13 (1.4-6.9) x10^3/uL Basophils # 0.03 (0-0.4) x10^3/uL Sodium 134 L (137-145) mmol/L Potassium 4.1 (3.5-5.1) mmol/L Chloride 102 (98-107) mmol/L Carbon Dioxide 25 (22-30) mmol/L Anion Gap 10.3 (5-15) MEQ/L BUN 19 H (7-17) mg/dL Creatinine 0.96 (0.52-1.04) mg/dL Estimated GFR 58.7 ML/MIN Glucose 78 (74-106) mg/dL POC Glucometer (74 to 106) mg/dL Calcium 7.9 L (8.4-10.2) mg/dL Magnesium (1.6-2.3) mg/dL Total Bilirubin 0.40 (0.2-1.3) mg/dL AST 20 (14-36) U/L ALT 12 (0-35) U/L Alkaline Phosphatase 84 (38-126) U/L Troponin I (0.000-0.034) ng/mL Serum Total Protein 5.9 L (6.3-8.2) g/dL Albumin 3.2 L (3.5-5.0) g/dL Triglycerides 86 (30-150) mg/dL Cholesterol 124 (50-200) mg/dL LDL Cholesterol 69 (30-100) mg/dL HDL Cholesterol 36 L (40-60) mg/dL Heart Disease Risk Ratio 3.4 Vitamin B12 (239-931) pg/mL TSH 3rd Generation (0.47-4.68) mIU/L Urinalys Dipstick Clnc Urine Color (YELLOW) Urine Appearance (CLEAR) Urine pH (5-6) Ur Specific [place] (1.005-1.025) POC Urine Protein Conf (Negative) Urine Ketones (NEGATIVE) Urine Nitrite (NEGATIVE) Urine Bilirubin (NEGATIVE) Urine Urobilinogen (0-1) mg/dL Urine Leukocytes (NEGATIVE) Urine WBC (Auto) (0-5) /HPF Urine RBC (Auto) (0-2) /HPF U Epithel Cells (Auto) (FEW) /HPF Urine Bacteria (Auto) (NEGATIVE) /HPF Urine RBC (0-5) Marito/ul Urine Mucus (Auto) (NEGATIVE) /HPF Ur Culture Indicated? Urine Glucose (NEGATIVE) mg/dL 03/31/22 03/31/22 03/31/22 Range/Units 04:30 04:30 06:45 WBC (4.0-10.5) x10^3/uL RBC (4.1-5.4) x10^6/uL Hgb (12.0-16.0) g/dL Hct (35-47) % MCV (78-100) fL MCH (26-32) pg MCHC (32-36) g/dL RDW (11.5-14.0) % Plt Count (150-450) x10^3/uL MPV (7.5-11.0) fL Gran % (36.0-66.0) % Immature Gran % (Auto) (0.00-0.4) % Nucleat RBC Rel Count (0.00-0.1) % Eos # (Auto) (0-0.5) x10^3/uL Immature Gran # (Auto) (0.00-0.03) x10^3u/L Absolute Lymphs (auto) (1.0-4.6) x10^3/uL Absolute Monos (auto) (0.0-1.3) x10^3/uL Absolute Nucleated RBC (0.00-0.01) x10^3u/L Lymphocytes % (24.0-44.0) % Monocytes % (0.0-12.0) % Eosinophils % (0.00-5.0) % Basophils % (0.0-0.4) % Absolute Granulocytes (1.4-6.9) x10^3/uL Basophils # (0-0.4) x10^3/uL Sodium (137-145) mmol/L Potassium (3.5-5.1) mmol/L Chloride (98-107) mmol/L Carbon Dioxide (22-30) mmol/L Anion Gap (5-15) MEQ/L BUN (7-17) mg/dL Creatinine (0.52-1.04) mg/dL Estimated GFR ML/MIN Glucose (74-106) mg/dL POC Glucometer 114 H (74 to 106) mg/dL Calcium (8.4-10.2) mg/dL Magnesium 2.0 (1.6-2.3) mg/dL Total Bilirubin (0.2-1.3) mg/dL AST (14-36) U/L ALT (0-35) U/L Alkaline Phosphatase (38-126) U/L Troponin I 0.022 (0.000-0.034) ng/mL Serum Total Protein (6.3-8.2) g/dL Albumin (3.5-5.0) g/dL Triglycerides (30-150) mg/dL Cholesterol (50-200) mg/dL LDL Cholesterol (30-100) mg/dL HDL Cholesterol (40-60) mg/dL Heart Disease Risk Ratio Vitamin B12 576 (239-931) pg/mL TSH 3rd Generation 2.260 (0.47-4.68) mIU/L Urinalys Dipstick Clnc Urine Color (YELLOW) Urine Appearance (CLEAR) Urine pH (5-6) Ur Specific [place] (1.005-1.025) POC Urine Protein Conf (Negative) Urine Ketones (NEGATIVE) Urine Nitrite (NEGATIVE) Urine Bilirubin (NEGATIVE) Urine Urobilinogen (0-1) mg/dL Urine Leukocytes (NEGATIVE) Urine WBC (Auto) (0-5) /HPF Urine RBC (Auto) (0-2) /HPF U Epithel Cells (Auto) (FEW) /HPF Urine Bacteria (Auto) (NEGATIVE) /HPF Urine RBC (0-5) Marito/ul Urine Mucus (Auto) (NEGATIVE) /HPF Ur Culture Indicated? Urine Glucose (NEGATIVE) mg/dL // Range/Units 10:45 WBC (4.0-10.5) x10^3/uL RBC (4.1-5.4) x10^6/uL Hgb (12.0-16.0) g/dL Hct (35-47) % MCV (78-100) fL MCH (26-32) pg MCHC (32-36) g/dL RDW (11.5-14.0) % Plt Count (150-450) x10^3/uL MPV (7.5-11.0) fL Gran % (36.0-66.0) % Immature Gran % (Auto) (0.00-0.4) % Nucleat RBC Rel Count (0.00-0.1) % Eos # (Auto) (0-0.5) x10^3/uL Immature Gran # (Auto) (0.00-0.03) x10^3u/L Absolute Lymphs (auto) (1.0-4.6) x10^3/uL Absolute Monos (auto) (0.0-1.3) x10^3/uL Absolute Nucleated RBC (0.00-0.01) x10^3u/L Lymphocytes % (24.0-44.0) % Monocytes % (0.0-12.0) % Eosinophils % (0.00-5.0) % Basophils % (0.0-0.4) % Absolute Granulocytes (1.4-6.9) x10^3/uL Basophils # (0-0.4) x10^3/uL Sodium (137-145) mmol/L Potassium (3.5-5.1) mmol/L Chloride (98-107) mmol/L Carbon Dioxide (22-30) mmol/L Anion Gap (5-15) MEQ/L BUN (7-17) mg/dL Creatinine (0.52-1.04) mg/dL Estimated GFR ML/MIN Glucose (74-106) mg/dL POC Glucometer 262 H (74 to 106) mg/dL Calcium (8.4-10.2) mg/dL Magnesium (1.6-2.3) mg/dL Total Bilirubin (0.2-1.3) mg/dL AST (14-36) U/L ALT (0-35) U/L Alkaline Phosphatase (38-126) U/L Troponin I (0.000-0.034) ng/mL Serum Total Protein (6.3-8.2) g/dL Albumin (3.5-5.0) g/dL Triglycerides (30-150) mg/dL Cholesterol (50-200) mg/dL LDL Cholesterol (30-100) mg/dL HDL Cholesterol (40-60) mg/dL Heart Disease Risk Ratio Vitamin B12 (239-931) pg/mL TSH 3rd Generation (0.47-4.68) mIU/L Urinalys Dipstick Clnc Urine Color (YELLOW) Urine Appearance (CLEAR) Urine pH (5-6) Ur Specific [place] (1.005-1.025) POC Urine Protein Conf (Negative) Urine Ketones (NEGATIVE) Urine Nitrite (NEGATIVE) Urine Bilirubin (NEGATIVE) Urine Urobilinogen (0-1) mg/dL Urine Leukocytes (NEGATIVE) Urine WBC (Auto) (0-5) /HPF Urine RBC (Auto) (0-2) /HPF U Epithel Cells (Auto) (FEW) /HPF Urine Bacteria (Auto) (NEGATIVE) /HPF Urine RBC (0-5) Marito/ul Urine Mucus (Auto) (NEGATIVE) /HPF Ur Culture Indicated? Urine Glucose (NEGATIVE) mg/dL Accuchecks Date 03/31/22 Date 03/31/22 Date 03/30/22 Date 03/30/22 Time 11:21 Time 07:40 Time 17:34 - Radiology Impressions Radiology Exams & Impressions: Radiology Procedures Category Date Time Status CHEST 1 VIEW (PORTABLE) Stat Exams 03/30/22 12:54 Completed - Other Procedures and Tests Respiratory Therapy 04/01/22 05:00 EKG ONCE 04/02/22 05:00 EKG ONCE Assessment/Plan (1) Hyponatremia Status: Resolved Code(s): E87.1 - HYPO-OSMOLALITY AND HYPONATREMIA (2) CAD (coronary artery disease) Status: Chronic Qualifiers: Associated angina: without angina Code(s): I25.10 - ATHSCL HEART DISEASE OF [place] CORONARY ARTERY W/O ANG PCTRS (3) S/P CABG (coronary artery bypass graft) Status: Chronic Code(s): Z95.1 - PRESENCE OF AORTOCORONARY BYPASS GRAFT (4) Elevated troponin Status: Resolved Code(s): R77.8 - OTHER SPECIFIED ABNORMALITIES OF PLASMA PROTEINS Hospital Summary - Hospital Course Hospital Course: Patient was observed overnight on med surg. Her B/P improved with Nitro paste given in ER and continuation of her home meds. She was anxious and Xanax dose given at bedtime. She slept well and B/P normal day of discharge. Appetite good and able to get up and walk in the room without any problems.Troponin retested and was normal. Data Analyst Report Writer further "shakey spells". Daughter and at the bedside . Patient is at her baseline and will be discharged to the care of her family.Follow up appt with PCP scheduled. Patient will monitor her B/P at home and bring cuff and readings to appt. - Vitals & Intake/Output Vital Signs: Vital Signs Temperature 98.9 F 03/31/22 11:54 Pulse Rate 60 03/31/22 11:54 Respiratory Rate 19 03/31/22 12:00 Blood Pressure 146/65 03/31/22 11:54 O2 Sat by Pulse Oximetry 98 03/31/22 11:54 Intake & Output: Intake & Output 03/29/22 03/30/22 03/31/22 04/01/22 11:59 11:59 11:59 11:59 Intake Total 1794 240 Balance 1794 240 Weight 63.5 kg - Lab Result Diagrams: 03/31/22 04:30 03/31/22 04:30 Lab Results-Last 24 Hrs: Lab Results-Last 24 Hours 03/30/22 03/30/22 03/30/22 Range/Units 13:00 13:52 15:13 WBC (4.0-10.5) x10^3/uL RBC (4.1-5.4) x10^6/uL Hgb (12.0-16.0) g/dL Hct (35-47) % MCV (78-100) fL MCH (26-32) pg MCHC (32-36) g/dL RDW (11.5-14.0) % Plt Count (150-450) x10^3/uL MPV (7.5-11.0) fL Gran % (36.0-66.0) % Immature Gran % (Auto) (0.00-0.4) % Nucleat RBC Rel Count (0.00-0.1) % Eos # (Auto) (0-0.5) x10^3/uL Immature Gran # (Auto) (0.00-0.03) x10^3u/L Absolute Lymphs (auto) (1.0-4.6) x10^3/uL Absolute Monos (auto) (0.0-1.3) x10^3/uL Absolute Nucleated RBC (0.00-0.01) x10^3u/L Lymphocytes % (24.0-44.0) % Monocytes % (0.0-12.0) % Eosinophils % (0.00-5.0) % Basophils % (0.0-0.4) % Absolute Granulocytes (1.4-6.9) x10^3/uL Basophils # (0-0.4) x10^3/uL Sodium 128 L (137-145) mmol/L Potassium 3.8 (3.5-5.1) mmol/L Chloride 96 L (98-107) mmol/L Carbon Dioxide 24 (22-30) mmol/L Anion Gap 11.8 (5-15) MEQ/L BUN 21 H (7-17) mg/dL Creatinine 1.08 H (0.52-1.04) mg/dL Estimated GFR 51.2 ML/MIN Glucose 201 H (74-106) mg/dL POC Glucometer (74 to 106) mg/dL Calcium 8.7 (8.4-10.2) mg/dL Magnesium (1.6-2.3) mg/dL Total Bilirubin 0.50 (0.2-1.3) mg/dL AST 29 (14-36) U/L ALT 14 (0-35) U/L Alkaline Phosphatase 98 (38-126) U/L Troponin I 0.031 (0.000-0.034) ng/mL Serum Total Protein 7.1 (6.3-8.2) g/dL Albumin 4.1 (3.5-5.0) g/dL Triglycerides (30-150) mg/dL Cholesterol (50-200) mg/dL LDL Cholesterol (30-100) mg/dL HDL Cholesterol (40-60) mg/dL Heart Disease Risk Ratio Vitamin B12 (239-931) pg/mL TSH 3rd Generation (0.47-4.68) mIU/L Urinalys Dipstick Clnc MAIN LAB Urine Color YELLOW (YELLOW) Urine Appearance CLEAR (CLEAR) Urine pH 6.5 (5-6) Ur Specific [place] 1.010 (1.005-1.025) POC Urine Protein Conf NEGATIVE (Negative) Urine Ketones TRACE A (NEGATIVE) Urine Nitrite NEGATIVE (NEGATIVE) Urine Bilirubin NEGATIVE (NEGATIVE) Urine Urobilinogen 0.2 (0-1) mg/dL Urine Leukocytes TRACE A (NEGATIVE) Urine WBC (Auto) NONE (0-5) /HPF Urine RBC (Auto) 0-2 (0-2) /HPF U Epithel Cells (Auto) NONE (FEW) /HPF Urine Bacteria (Auto) NONE (NEGATIVE) /HPF Urine RBC TRACE-LYSED A (0-5) Marito/ul Urine Mucus (Auto) SLIGHT A (NEGATIVE) /HPF Ur Culture Indicated? NO Urine Glucose 100 A (NEGATIVE) mg/dL 03/30/22 03/30/22 03/30/22 Range/Units 17:31 21:24 21:30 WBC (4.0-10.5) x10^3/uL RBC (4.1-5.4) x10^6/uL Hgb (12.0-16.0) g/dL Hct (35-47) % MCV (78-100) fL MCH (26-32) pg MCHC (32-36) g/dL RDW (11.5-14.0) % Plt Count (150-450) x10^3/uL MPV (7.5-11.0) fL Gran % (36.0-66.0) % Immature Gran % (Auto) (0.00-0.4) % Nucleat RBC Rel Count (0.00-0.1) % Eos # (Auto) (0-0.5) x10^3/uL Immature Gran # (Auto) (0.00-0.03) x10^3u/L Absolute Lymphs (auto) (1.0-4.6) x10^3/uL Absolute Monos (auto) (0.0-1.3) x10^3/uL Absolute Nucleated RBC (0.00-0.01) x10^3u/L Lymphocytes % (24.0-44.0) % Monocytes % (0.0-12.0) % Eosinophils % (0.00-5.0) % Basophils % (0.0-0.4) % Absolute Granulocytes (1.4-6.9) x10^3/uL Basophils # (0-0.4) x10^3/uL Sodium (137-145) mmol/L Potassium (3.5-5.1) mmol/L Chloride (98-107) mmol/L Carbon Dioxide (22-30) mmol/L Anion Gap (5-15) MEQ/L BUN (7-17) mg/dL Creatinine (0.52-1.04) mg/dL Estimated GFR ML/MIN Glucose (74-106) mg/dL POC Glucometer 307 H 278 H (74 to 106) mg/dL Calcium (8.4-10.2) mg/dL Magnesium (1.6-2.3) mg/dL Total Bilirubin (0.2-1.3) mg/dL AST (14-36) U/L ALT (0-35) U/L Alkaline Phosphatase (38-126) U/L Troponin I 0.029 (0.000-0.034) ng/mL Serum Total Protein (6.3-8.2) g/dL Albumin (3.5-5.0) g/dL Triglycerides (30-150) mg/dL Cholesterol (50-200) mg/dL LDL Cholesterol (30-100) mg/dL HDL Cholesterol (40-60) mg/dL Heart Disease Risk Ratio Vitamin B12 (239-931) pg/mL TSH 3rd Generation (0.47-4.68) mIU/L Urinalys Dipstick Clnc Urine Color (YELLOW) Urine Appearance (CLEAR) Urine pH (5-6) Ur Specific [place] (1.005-1.025) POC Urine Protein Conf (Negative) Urine Ketones (NEGATIVE) Urine Nitrite (NEGATIVE) Urine Bilirubin (NEGATIVE) Urine Urobilinogen (0-1) mg/dL Urine Leukocytes (NEGATIVE) Urine WBC (Auto) (0-5) /HPF Urine RBC (Auto) (0-2) /HPF U Epithel Cells (Auto) (FEW) /HPF Urine Bacteria (Auto) (NEGATIVE) /HPF Urine RBC (0-5) Marito/ul Urine Mucus (Auto) (NEGATIVE) /HPF Ur Culture Indicated? Urine Glucose (NEGATIVE) mg/dL 03/31/22 03/31/22 03/31/22 Range/Units 04:30 04:30 04:30 WBC 6.5 (4.0-10.5) x10^3/uL RBC 3.37 L (4.1-5.4) x10^6/uL Hgb 10.2 L (12.0-16.0) g/dL Hct 31.4 L (35-47) % MCV 93.2 (78-100) fL MCH 30.3 (26-32) pg MCHC 32.5 (32-36) g/dL RDW 13.2 (11.5-14.0) % Plt Count 207 (150-450) x10^3/uL MPV 10.6 (7.5-11.0) fL Gran % 63.7 (36.0-66.0) % Immature Gran % (Auto) 0.2 (0.00-0.4) % Nucleat RBC Rel Count 0.0 (0.00-0.1) % Eos # (Auto) 0.29 (0-0.5) x10^3/uL Immature Gran # (Auto) 0.01 (0.00-0.03) x10^3u/L Absolute Lymphs (auto) 1.50 (1.0-4.6) x10^3/uL Absolute Monos (auto) 0.52 (0.0-1.3) x10^3/uL Absolute Nucleated RBC 0.00 (0.00-0.01) x10^3u/L Lymphocytes % 23.1 L (24.0-44.0) % Monocytes % 8.0 (0.0-12.0) % Eosinophils % 4.5 (0.00-5.0) % Basophils % 0.5 (0.0-0.4) % Absolute Granulocytes 4.13 (1.4-6.9) x10^3/uL Basophils # 0.03 (0-0.4) x10^3/uL Sodium 134 L (137-145) mmol/L Potassium 4.1 (3.5-5.1) mmol/L Chloride 102 (98-107) mmol/L Carbon Dioxide 25 (22-30) mmol/L Anion Gap 10.3 (5-15) MEQ/L BUN 19 H (7-17) mg/dL Creatinine 0.96 (0.52-1.04) mg/dL Estimated GFR 58.7 ML/MIN Glucose 78 (74-106) mg/dL POC Glucometer (74 to 106) mg/dL Calcium 7.9 L (8.4-10.2) mg/dL Magnesium (1.6-2.3) mg/dL Total Bilirubin 0.40 (0.2-1.3) mg/dL AST 20 (14-36) U/L ALT 12 (0-35) U/L Alkaline Phosphatase 84 (38-126) U/L Troponin I (0.000-0.034) ng/mL Serum Total Protein 5.9 L (6.3-8.2) g/dL Albumin 3.2 L (3.5-5.0) g/dL Triglycerides 86 (30-150) mg/dL Cholesterol 124 (50-200) mg/dL LDL Cholesterol 69 (30-100) mg/dL HDL Cholesterol 36 L (40-60) mg/dL Heart Disease Risk Ratio 3.4 Vitamin B12 (239-931) pg/mL TSH 3rd Generation (0.47-4.68) mIU/L Urinalys Dipstick Clnc Urine Color (YELLOW) Urine Appearance (CLEAR) Urine pH (5-6) Ur Specific [place] (1.005-1.025) POC Urine Protein Conf (Negative) Urine Ketones (NEGATIVE) Urine Nitrite (NEGATIVE) Urine Bilirubin (NEGATIVE) Urine Urobilinogen (0-1) mg/dL Urine Leukocytes (NEGATIVE) Urine WBC (Auto) (0-5) /HPF Urine RBC (Auto) (0-2) /HPF U Epithel Cells (Auto) (FEW) /HPF Urine Bacteria (Auto) (NEGATIVE) /HPF Urine RBC (0-5) Marito/ul Urine Mucus (Auto) (NEGATIVE) /HPF Ur Culture Indicated? Urine Glucose (NEGATIVE) mg/dL 03/31/22 03/31/22 03/31/22 Range/Units 04:30 04:30 06:45 WBC (4.0-10.5) x10^3/uL RBC (4.1-5.4) x10^6/uL Hgb (12.0-16.0) g/dL Hct (35-47) % MCV (78-100) fL MCH (26-32) pg MCHC (32-36) g/dL RDW (11.5-14.0) % Plt Count (150-450) x10^3/uL MPV (7.5-11.0) fL Gran % (36.0-66.0) % Immature Gran % (Auto) (0.00-0.4) % Nucleat RBC Rel Count (0.00-0.1) % Eos # (Auto) (0-0.5) x10^3/uL Immature Gran # (Auto) (0.00-0.03) x10^3u/L Absolute Lymphs (auto) (1.0-4.6) x10^3/uL Absolute Monos (auto) (0.0-1.3) x10^3/uL Absolute Nucleated RBC (0.00-0.01) x10^3u/L Lymphocytes % (24.0-44.0) % Monocytes % (0.0-12.0) % Eosinophils % (0.00-5.0) % Basophils % (0.0-0.4) % Absolute Granulocytes (1.4-6.9) x10^3/uL Basophils # (0-0.4) x10^3/uL Sodium (137-145) mmol/L Potassium (3.5-5.1) mmol/L Chloride (98-107) mmol/L Carbon Dioxide (22-30) mmol/L Anion Gap (5-15) MEQ/L BUN (7-17) mg/dL Creatinine (0.52-1.04) mg/dL Estimated GFR ML/MIN Glucose (74-106) mg/dL POC Glucometer 114 H (74 to 106) mg/dL Calcium (8.4-10.2) mg/dL Magnesium 2.0 (1.6-2.3) mg/dL Total Bilirubin (0.2-1.3) mg/dL AST (14-36) U/L ALT (0-35) U/L Alkaline Phosphatase (38-126) U/L Troponin I 0.022 (0.000-0.034) ng/mL Serum Total Protein (6.3-8.2) g/dL Albumin (3.5-5.0) g/dL Triglycerides (30-150) mg/dL Cholesterol (50-200) mg/dL LDL Cholesterol (30-100) mg/dL HDL Cholesterol (40-60) mg/dL Heart Disease Risk Ratio Vitamin B12 576 (239-931) pg/mL TSH 3rd Generation 2.260 (0.47-4.68) mIU/L Urinalys Dipstick Clnc Urine Color (YELLOW) Urine Appearance (CLEAR) Urine pH (5-6) Ur Specific [place] (1.005-1.025) POC Urine Protein Conf (Negative) Urine Ketones (NEGATIVE) Urine Nitrite (NEGATIVE) Urine Bilirubin (NEGATIVE) Urine Urobilinogen (0-1) mg/dL Urine Leukocytes (NEGATIVE) Urine WBC (Auto) (0-5) /HPF Urine RBC (Auto) (0-2) /HPF U Epithel Cells (Auto) (FEW) /HPF Urine Bacteria (Auto) (NEGATIVE) /HPF Urine RBC (0-5) Marito/ul Urine Mucus (Auto) (NEGATIVE) /HPF Ur Culture Indicated? Urine Glucose (NEGATIVE) mg/dL 03/31/22 Range/Units 10:45 WBC (4.0-10.5) x10^3/uL RBC (4.1-5.4) x10^6/uL Hgb (12.0-16.0) g/dL Hct (35-47) % MCV (78-100) fL MCH (26-32) pg MCHC (32-36) g/dL RDW (11.5-14.0) % Plt Count (150-450) x10^3/uL MPV (7.5-11.0) fL Gran % (36.0-66.0) % Immature Gran % (Auto) (0.00-0.4) % Nucleat RBC Rel Count (0.00-0.1) % Eos # (Auto) (0-0.5) x10^3/uL Immature Gran # (Auto) (0.00-0.03) x10^3u/L Absolute Lymphs (auto) (1.0-4.6) x10^3/uL Absolute Monos (auto) (0.0-1.3) x10^3/uL Absolute Nucleated RBC (0.00-0.01) x10^3u/L Lymphocytes % (24.0-44.0) % Monocytes % (0.0-12.0) % Eosinophils % (0.00-5.0) % Basophils % (0.0-0.4) % Absolute Granulocytes (1.4-6.9) x10^3/uL Basophils # (0-0.4) x10^3/uL Sodium (137-145) mmol/L Potassium (3.5-5.1) mmol/L Chloride (98-107) mmol/L Carbon Dioxide (22-30) mmol/L Anion Gap (5-15) MEQ/L BUN (7-17) mg/dL Creatinine (0.52-1.04) mg/dL Estimated GFR ML/MIN Glucose (74-106) mg/dL POC Glucometer 262 H (74 to 106) mg/dL Calcium (8.4-10.2) mg/dL Magnesium (1.6-2.3) mg/dL Total Bilirubin (0.2-1.3) mg/dL AST (14-36) U/L ALT (0-35) U/L Alkaline Phosphatase (38-126) U/L Troponin I (0.000-0.034) ng/mL Serum Total Protein (6.3-8.2) g/dL Albumin (3.5-5.0) g/dL Triglycerides (30-150) mg/dL Cholesterol (50-200) mg/dL LDL Cholesterol (30-100) mg/dL HDL Cholesterol (40-60) mg/dL Heart Disease Risk Ratio Vitamin B12 (239-931) pg/mL TSH 3rd Generation (0.47-4.68) mIU/L Urinalys Dipstick Clnc Urine Color (YELLOW) Urine Appearance (CLEAR) Urine pH (5-6) Ur Specific [place] (1.005-1.025) POC Urine Protein Conf (Negative) Urine Ketones (NEGATIVE) Urine Nitrite (NEGATIVE) Urine Bilirubin (NEGATIVE) Urine Urobilinogen (0-1) mg/dL Urine Leukocytes (NEGATIVE) Urine WBC (Auto) (0-5) /HPF Urine RBC (Auto) (0-2) /HPF U Epithel Cells (Auto) (FEW) /HPF Urine Bacteria (Auto) (NEGATIVE) /HPF Urine RBC (0-5) Marito/ul Urine Mucus (Auto) (NEGATIVE) /HPF Ur Culture Indicated? Urine Glucose (NEGATIVE) mg/dL Micro Results-Entire Visit: Accuchecks Date 03/31/22 Date 03/31/22 Date 03/30/22 Date 03/30/22 Time 11:21 Time 07:40 Time 17:34 - Radiology Exams Ordered Rad Exams-Entire Visit: Radiology Procedures Category Date Time Status CHEST 1 VIEW (PORTABLE) Stat Exams 03/30/22 12:54 Completed - Procedures and Test Procedures and Tests throughout Hospitalization: Therapy Orders & Screens 03/30/22 16:42 EKG Q8HX2,QAMX3,PRN Comment: 03/30/22 21:45 EKG ONCE Comment: Diagnosis: hyponatremia, hypertensive emergency, elevated troponin 03/31/22 05:00 EKG ONCE Comment: Diagnosis: hyponatremia, hypertensive emergency, elevated troponin 04/01/22 05:00 EKG ONCE Comment: Diagnosis: hyponatremia, hypertensive emergency, elevated troponin 04/02/22 05:00 EKG ONCE Comment: Diagnosis: hyponatremia, hypertensive emergency, elevated troponin - Discharge Disposition: Home, Self-Care Condition: Stable Prescriptions: New Fluticasone Propionate [Flonase NASAL] 1 gm NS UD 30 Days #1 inhaler No Action Insulin Glargine [Lantus Insulin] 12 unit SQ DAILY Aspirin 81 gm Chew [Baby Aspirin 81 mg Chew] 81 mg PO DAILY Metoprolol Tartrate 25 mg [Lopressor 25MG Tab] 25 mg PO DAILY Amlodipine Besylate 5 mg [Norvasc 5 mg] 5 mg PO DAILY Instructions: High Blood Pressure (DC), Hyponatremia (DC) Additional Instructions: Take home B/P 3 x a day and record ,bring home cuff and B/P readings to appt with Dr Gerber Follow up with: AFTAB GERBER DO [Primary Care Provider] - 04/06/22 2:30 pm Forms: Discharge Instructions
== END 2022-03-31 15:31 | disposition home or self-care (01) ==
LOC: ED 12:16 → MED SURG 16:35
PROVIDERS: ADMIT Family Medicine; ATTEND Family Medicine
DX: E87.1 Hypo-osmolality and hyponatremia (principal); I16.0 Hypertensive urgency; R77.8 Other specified abnormalities of plasma proteins; I25.10 Atherosclerotic heart disease of native coronary artery without angina pectoris; I10 Essential (primary) hypertension; E11.9 Type 2 diabetes mellitus without complications; Z79.899 Other long term (current) drug therapy; Z85.820 Personal history of malignant melanoma of skin; Z20.828 Contact with and (suspected) exposure to other viral communicable diseases
CPT/HCPCS: 0241U; 36000; 36415; 71045; 80053; 80061; 81015; 82607; 82947; 83036; 83721; 83735; 84443; 84484; 85025; 93005; 93041; 94760; 96360; 96361; 99285; J1817; A9270-GY

== ENCOUNTER 2022-07-06 15:28 | Emergency (ER) | payer MEDICARE ==
[2022-07-06] MEDS ORDERED: Sodium Chloride 0.9% 1000 ML 1,000 ML IV STA (15:42)
[2022-07-06] MEDS ORDERED: Zofran 4 MG/2 ML VIAL IV ONE (15:42)
[2022-07-06] MEDS ORDERED: SUBLIMAZE 100 MCG/2 ML IV ONE (15:42)
[2022-07-06] MEDS ORDERED: NORVASC 5 MG PO ONE (15:46)
[2022-07-06 16:03] LABS: Absolute Neutrophil Ct (ANC) 3.07 x10^3/uL (1.4-6.9); BASOPHIL % 0.9 % (0.0-0.4); Basophil (Absolute #) 0.05 x10^3/uL (0-0.4); Eosinophil (Absolute #) 0.16 x10^3/uL (0-0.5); Hematocrit 37.5 % (35-47); Hemoglobin 12.2 g/dL (12.0-16.0); IMMATURE GRAN # 0.01 x10^3u/L (0.00-0.03); IMMATURE GRAN % 0.2 % (0.00-0.4); Lymphocyte (Absolute #) 1.77 x10^3/uL (1.0-4.6); Lymphocytes % 32.8 % (24.0-44.0); Mean Cell Volume 91.5 fL (78-100); Mean Corpuscular Hemoglobin 29.8 pg (26-32); Mean Corpuscular Hgb Concent. 32.5 g/dL (32-36); Mean Platelet Volume 9.8 fL (7.5-11.0); Monocyte (Absolute #) 0.34 x10^3/uL (0.0-1.3); Monocytes % 6.3 % (0.0-12.0); Neutrophil % 56.8 % (36.0-66.0); Platelet Count 206 x10^3/uL (150-450); Red Cell Distribution Width 13.4 % (11.5-14.0); White Blood Count 5.4 x10^3/uL (4.0-10.5)
[2022-07-06 16:14] LABS: INR 0.92 (0.8-3.0); PROTIME 10.1 SECONDS (9.4-12.5)
[2022-07-06 16:17] LABS: ALBUMIN 4.3 g/dL (3.5-5.0); BILIRUBIN,TOTAL 0.6 mg/dL (0.2-1.3); Creatinine 1 1.15 mg/dL (0.52-1.04); EST GLOMERULAR FILTRATION RATE 47.7 ML/MIN; Potassium 4.2 mmol/L (3.5-5.1); Total Protein 7.2 g/dL (6.3-8.2)
[2022-07-06 16:20] LABS: Appearance Clear (Clear); Bacteria None Seen /HPF (None Seen); Bilirubin Negative (Negative); Blood Trace (Negative); Epithelial Cells None Seen /HPF (None Seen); Glucose, Urine >=1000 mg/dL (Negative); Hyaline Casts NONE SEEN /LPF (0-2); Ketones Negative (Negative); Leukocyte Esterase Moderate (Negative); Nitrite Negative (Negative); Ph 6.5 (4.6-8.0); Protein,Urine Dip Negative (Negative); RBC 0-2 /HPF (0-5); Urobilinogen 0.2 mg/dL (0.2); WBC 21-50 /HPF (0-5)
[2022-07-06] MEDS ORDERED: Zofran 4 MG/2 ML VIAL ONE ×2 (16:31→17:14)
[2022-07-06] MEDS ORDERED: SUBLIMAZE 100 MCG/2 ML ONE ×2 (16:32→17:15)
[2022-07-06] MEDS ORDERED: Sodium Chloride 0.9% 1000 ML 1,000 ML ONE (16:32)
[2022-07-06] MEDS ORDERED: NORVASC 5 MG ONE (16:32)
--- NOTE | 2022-07-06 16:33 | XRAY ---
Indication: Right upper quadrant pain. Comparison: March 30, 2022 Portable chest remains hyperinflated and clear. Heart not enlarged again with CABG. Bony thorax intact again with osteopenia and degenerative changes especially left shoulder. Impression: Stable nonacute chest with chronic features.
[2022-07-06 16:53] LABS: Amphetamine,Urine NEGATIVE (NEGATIVE); Barbiturate,Urine NEGATIVE (NEGATIVE); Benzodiazepine,Urine NEGATIVE (NEGATIVE); Cocaine,Urine NEGATIVE (NEGATIVE); Methadone,Urine NEGATIVE (NEGATIVE); Opiate,Urine NEGATIVE (NEGATIVE); PCP,Urine NEGATIVE (NEGATIVE); THC,Urine NEGATIVE (NEGATIVE)
[2022-07-06 17:02] LABS: ADD URINE CULTURE? YES (NO)
--- NOTE | 2022-07-06 17:34 | ERPHSYRPT ---
- History of Present Illness Time Seen by Provider: 07/06/22 15:45 Historian: patient Exam Limitations: no limitations Patient Subjective Stated Complaint: Pt states "having this feeling for several days now and decided it was getting worse and I needed to do something. I called my doctor and she sent me here. The feeling is an ache in upper mid abdoment that has been waking me up in the morning." Triage Nursing Assessment: pt ambulated to room 9 after using restroom and providing urine sample. alert and oriented times three. Abdomen is soft, nondistended, and nontender. LBM 07/05/22 and she was able to eat breakfast this morning. denies nausea or vomiting or diarrhea. Physician History: Patient is an 86-year-old white female who presents with a complaint of abdominal pain. She has had no nausea no vomiting she has had some constipation but no diarrhea. Her pain is epigastric she has had it for 2 days when it awakens her from sleep in the morning. She says she then proceeds to belch frequently and after belching a lot she actually gets some relief. She says she has had no fever chills or sweats although her face does feel flushed when she awakens in the morning she denies any previous abdominal surgery. Allergies/Adverse Reactions: Penicillins Allergy (Verified 07/06/22 16:00) Hives codeine Adverse Reaction (Verified 03/30/22 12:25) HYPER Home Medications: Aspirin 81 gm Chew [Baby Aspirin 81 mg Chew] 81 mg PO DAILY 01/02/13 [H istory] Insulin Glargine [Lantus Insulin] 12 unit SQ DAILY 01/02/13 [History] Amlodipine Besylate 5 mg [Norvasc 5 mg] 5 mg PO DAILY 03/30/22 [History] Metoprolol Tartrate 25 mg [Lopressor 25MG Tab] 25 mg PO DAILY 03/30/22 [History] Insulin Lispro [Humalog] 100 unit SQ UD 07/06/22 [History] Hx Tetanus, Diphtheria Vaccination/Date Given: (unknown) Hx Influenza Vaccination/Date Given: Yes (fall 2021) Hx Pneumococcal Vaccination/Date Given: Yes (approx 4 yrs ago) Immunizations Up to Date: Yes Travel Risk - International Travel Have you traveled outside of the country in past 3 weeks: No - Coronavirus Screening Are you exhibiting any of the following symptoms?: No Close contact with a COVID-19 positive Pt in past 14-21 Days: No - Vaccine Status Have you recieved a Covid-19 vaccination: Yes [employer] Operator: Moderna - Vaccination Dates Date of 2cond Vaccination (if applicable): 2020 Dates if Unknown: ? Comment: reports she has had three moderna vaccines but does not know the dates - Review of Systems Constitutional: No Fever, No Chills Eyes: No Symptoms Ears, Nose, & Throat: No Symptoms Respiratory: No Cough, No Dyspnea Cardiac: No Chest Pain, No Edema, No Syncope Abdominal/Gastrointestinal: Abdominal Pain, No Nausea, No Vomiting, No Diarrhea Genitourinary Symptoms: No Dysuria Musculoskeletal: No Back Pain, No Neck Pain Skin: No Rash Neurological: No Dizziness, No Focal Weakness, No Sensory Changes Psychological: No Symptoms Endocrine: No Symptoms All Other Systems: Reviewed and Negative - Past Medical History Pertinent Past Medical History: Yes Neurological History: No Pertinent History ENT History: No Pertinent History Cardiac History: Coronary Artery Disease, Hypertension Respiratory History: No Pertinent History Endocrine Medical History: Diabetes Type II Musculoskeletal History: No Pertinent History GI Medical History: No Pertinent History History: No Pertinent History Psycho-Social History: No Pertinent History Female Reproductive Disorders: No Pertinent History Other Medical History: SKIN cancer removed off of face - Past Surgical History Past Surgical History: Yes Neuro Surgical History: No Pertinent History Cardiac: CABG Respiratory: No Pertinent History Gastrointestinal: No Pertinent History Genitourinary: No Pertinent History Musculoskeletal: Orthopedic Surgery Female Surgical History: No Pertinent History Other Surgical History: right ankle surgery - Social History Smoking Status: Never smoker Exposure to second hand smoke: No Drug Use: none Patient Lives Alone: No ( is 87 yrs old and need a lot of care) - Nursing Vital Signs Nursing Vital Signs: Initial Vital Signs Temperature 97.4 F 07/06/22 15:34 Pulse Rate 64 07/06/22 15:34 Respiratory Rate 14 07/06/22 15:34 Blood Pressure 220/93 07/06/22 15:34 O2 Sat by Pulse Oximetry 97 07/06/22 15:34 Pain Scale Pain Intensity 0 - Physical Exam General Appearance: no apparent distress, alert Eye Exam: PERRL/EOMI, eyes nml inspection Ears, Nose, Throat Exam: normal ENT inspection, pharynx normal, moist mucous membranes Neck Exam: normal inspection, non-tender, supple, full range of motion Respiratory Exam: normal breath sounds, lungs clear, No respiratory distress Cardiovascular Exam: regular rate/rhythm, normal heart sounds Gastrointestinal/Abdomen Exam: soft, No tenderness, No mass Back Exam: normal inspection, normal range of motion, No CVA tenderness, No vertebral tenderness Extremity Exam: normal inspection, normal range of motion, pelvis stable Neurologic Exam: alert, oriented x 3, cooperative, normal mood/affect, nml cerebellar function, sensation nml, No motor deficits Skin Exam: normal color, warm, dry SpO2: 99 - Course Nursing assessment & vital signs reviewed: Yes EKG Interpreted by Me: RATE (54), Sinus Rhythm, NORMAL AXIS, NORMAL INTERVALS, Non-specific ST Changes - Radiology Exams Chest X-ray Interpretation: Reviewed by me (Chest is stable) - CT Exams Abdomen/Pelvis CT Interpretation: Other (I have reviewed the CT scan the results per the radiologist are that there is heavy stool burden.) Ordered Tests: Active Orders 24 hr Category Date Time Status EKG-ER Only STAT Care 07/06/22 15:42 Active IV Insertion STAT Care 07/06/22 15:42 Active ABDOMEN AND PELVIS W/0 CONTRAS [CT] Stat Exams 07/06/22 15:43 Completed CHEST 1 VIEW (PORTABLE) Stat Exams 07/06/22 16:18 Completed AMYLASE Stat Lab 07/06/22 15:45 Completed CBC W DIFF Stat Lab 07/06/22 15:45 Completed CMP Stat Lab 07/06/22 15:45 Completed CULTURE,URINE Stat Lab 07/06/22 15:45 Received LIPASE Stat Lab 07/06/22 15:45 Completed Lactic Acid Stat Lab 07/06/22 15:55 Completed POCT GLUCOSE Stat Lab 07/06/22 17:19 Completed PROTIME WITH INR Stat Lab 07/06/22 15:45 Completed TROPONIN Q4H Lab 07/06/22 15:45 Completed TROPONIN Q4H Lab 07/06/22 19:45 Ordered TROPONIN Q4H Lab 07/06/22 23:45 Ordered UA W/RFX UR CULTURE Stat Lab 07/06/22 15:45 Completed Urine Triage Profile Stat Lab 07/06/22 15:45 Completed Medication Summary Discontinued Medications Generic Name Dose Route Start Last Admin Trade Name Freq PRN Reason Stop Dose Admin Amlodipine Besylate 5 mg 07/06/22 15:46 07/06/22 17:10 Amlodipine Besylate 5 Mg Tablet PO 07/06/22 15:47 5 mg STAT ONE Administration Amlodipine Besylate Confirm 07/06/22 16:32 Amlodipine Besylate 5 Mg Tablet Administered 07/06/22 16:33 Dose 5 mg .ROUTE .STK-MED ONE Fentanyl Citrate 50 mcg 07/06/22 15:42 Fentanyl Citrate 100 Mcg/2 Ml* Vial IV 07/06/22 15:43 STAT ONE Fentanyl Citrate Confirm 07/06/22 16:32 Fentanyl Citrate 100 Mcg/2 Ml* Vial Administered 07/06/22 16:33 Dose 100 mcg .ROUTE .STK-MED ONE Fentanyl Citrate Confirm 07/06/22 17:15 Fentanyl Citrate 100 Mcg/2 Ml* Vial Administered 07/06/22 17:16 Dose 100 mcg .ROUTE .STK-MED ONE Sodium Chloride 1,000 mls @ 999 mls/hr 07/06/22 15:42 07/06/22 17:11 Sodium Chloride 0.9% 1000 Ml IV 07/06/22 16:42 999 mls/hr .Q1H1M STA Administration Sodium Chloride Confirm 07/06/22 16:32 Sodium Chloride 0.9% 1000 Ml Administered 07/06/22 16:33 Dose 1,000 mls @ ud .ROUTE .STK-MED ONE Ondansetron HCl 4 mg 07/06/22 15:42 Ondansetron Hcl 4 Mg/2 Ml Vial IV 07/06/22 15:43 STAT ONE Ondansetron HCl Confirm 07/06/22 16:31 Ondansetron Hcl 4 Mg/2 Ml Vial Administered 07/06/22 16:32 Dose 4 mg .ROUTE .STK-MED ONE Ondansetron HCl Confirm 07/06/22 17:14 Ondansetron Hcl 4 Mg/2 Ml Vial Administered 07/06/22 17:15 Dose 4 mg .ROUTE .STK-MED ONE Lab/Rad Data: Laboratory Result Diagrams 07/06/22 15:45 07/06/22 15:45 Laboratory Results 07/06/22 07/06/22 07/06/22 Range/Units 17:19 15:55 15:45 WBC (4.0-10.5) x10^3/uL RBC (4.1-5.4) x10^6/uL Hgb (12.0-16.0) g/dL Hct (35-47) % MCV (78-100) fL MCH (26-32) pg MCHC (32-36) g/dL RDW (11.5-14.0) % Plt Count (150-450) x10^3/uL MPV (7.5-11.0) fL Gran % (36.0-66.0) % Immature Gran % (Auto) (0.00-0.4) % Nucleat RBC Rel Count (0.00-0.1) % Eos # (Auto) (0-0.5) x10^3/uL Immature Gran # (Auto) (0.00-0.03) x10^3u/L Absolute Lymphs (auto) (1.0-4.6) x10^3/uL Absolute Monos (auto) (0.0-1.3) x10^3/uL Absolute Nucleated RBC (0.00-0.01) x10^3u/L Lymphocytes % (24.0-44.0) % Monocytes % (0.0-12.0) % Eosinophils % (0.00-5.0) % Basophils % (0.0-0.4) % Absolute Granulocytes (1.4-6.9) x10^3/uL Basophils # (0-0.4) x10^3/uL PT (9.4-12.5) SECONDS INR (0.8-3.0) Sodium (137-145) mmol/L Potassium (3.5-5.1) mmol/L Chloride (98-107) mmol/L Carbon Dioxide (22-30) mmol/L Anion Gap (5-15) MEQ/L BUN (7-17) mg/dL Creatinine (0.52-1.04) mg/dL Estimated GFR ML/MIN Glucose (74-106) mg/dL POC Glucometer 111 H (74 to 106) mg/dL Lactic Acid 1.2 (0.4-2.0) Calcium (8.4-10.2) mg/dL Total Bilirubin (0.2-1.3) mg/dL AST (14-36) U/L ALT (0-35) U/L Alkaline Phosphatase (38-126) U/L Troponin I 0.019 (0.000-0.034) ng/mL Serum Total Protein (6.3-8.2) g/dL Albumin (3.5-5.0) g/dL Amylase (30-110) U/L Lipase (23-300) U/L Urine Color (Yellow) Urine Appearance (Clear) Urine pH (4.6-8.0) Ur Specific [place] (1.005-1.030) Urine Protein (Negative) Urine Glucose (UA) (Negative) mg/dL Urine Ketones (Negative) Urine Blood (Negative) Urine Nitrite (Negative) Urine Bilirubin (Negative) Urine Urobilinogen (0.2) mg/dL Ur Leukocyte Esterase (Negative) U Hyaline Cast (Auto) (0-2) /LPF Urine Microscopic RBC (0-5) /HPF Urine Microscopic WBC (0-5) /HPF Ur Epithelial Cells (None Seen) /HPF Urine Bacteria (None Seen) /HPF Urine Culture Reflexed (NO) Urine Opiates Level (NEGATIVE) Ur Methadone (NEGATIVE) Urine Barbiturates (NEGATIVE) Ur Phencyclidine (PCP) (NEGATIVE) Urine Amphetamine (NEGATIVE) U Benzodiazepine Level (NEGATIVE) Urine Cocaine (NEGATIVE) Urine Marijuana (THC) (NEGATIVE) 07/06/22 07/06/22 07/06/22 Range/Units 15:45 15:45 15:45 WBC (4.0-10.5) x10^3/uL RBC (4.1-5.4) x10^6/uL Hgb (12.0-16.0) g/dL Hct (35-47) % MCV (78-100) fL MCH (26-32) pg MCHC (32-36) g/dL RDW (11.5-14.0) % Plt Count (150-450) x10^3/uL MPV (7.5-11.0) fL Gran % (36.0-66.0) % Immature Gran % (Auto) (0.00-0.4) % Nucleat RBC Rel Count (0.00-0.1) % Eos # (Auto) (0-0.5) x10^3/uL Immature Gran # (Auto) (0.00-0.03) x10^3u/L Absolute Lymphs (auto) (1.0-4.6) x10^3/uL Absolute Monos (auto) (0.0-1.3) x10^3/uL Absolute Nucleated RBC (0.00-0.01) x10^3u/L Lymphocytes % (24.0-44.0) % Monocytes % (0.0-12.0) % Eosinophils % (0.00-5.0) % Basophils % (0.0-0.4) % Absolute Granulocytes (1.4-6.9) x10^3/uL Basophils # (0-0.4) x10^3/uL PT 10.1 (9.4-12.5) SECONDS INR 0.92 (0.8-3.0) Sodium (137-145) mmol/L Potassium (3.5-5.1) mmol/L Chloride (98-107) mmol/L Carbon Dioxide (22-30) mmol/L Anion Gap (5-15) MEQ/L BUN (7-17) mg/dL Creatinine (0.52-1.04) mg/dL Estimated GFR ML/MIN Glucose (74-106) mg/dL POC Glucometer (74 to 106) mg/dL Lactic Acid (0.4-2.0) Calcium (8.4-10.2) mg/dL Total Bilirubin (0.2-1.3) mg/dL AST (14-36) U/L ALT (0-35) U/L Alkaline Phosphatase (38-126) U/L Troponin I (0.000-0.034) ng/mL Serum Total Protein (6.3-8.2) g/dL Albumin (3.5-5.0) g/dL Amylase (30-110) U/L Lipase (23-300) U/L Urine Color Yellow (Yellow) Urine Appearance Clear (Clear) Urine pH 6.5 (4.6-8.0) Ur Specific [place] 1.010 (1.005-1.030) Urine Protein Negative (Negative) Urine Glucose (UA) >=1000 A (Negative) mg/dL Urine Ketones Negative (Negative) Urine Blood Trace (Negative) Urine Nitrite Negative (Negative) Urine Bilirubin Negative (Negative) Urine Urobilinogen 0.2 (0.2) mg/dL Ur Leukocyte Esterase Moderate A (Negative) U Hyaline Cast (Auto) NONE SEEN (0-2) /LPF Urine Microscopic RBC 0-2 (0-5) /HPF Urine Microscopic WBC 21-50 A (0-5) /HPF Ur Epithelial Cells None Seen (None Seen) /HPF Urine Bacteria None Seen (None Seen) /HPF Urine Culture Reflexed YES (NO) Urine Opiates Level NEGATIVE (NEGATIVE) Ur Methadone NEGATIVE (NEGATIVE) Urine Barbiturates NEGATIVE (NEGATIVE) Ur Phencyclidine (PCP) NEGATIVE (NEGATIVE) Urine Amphetamine NEGATIVE (NEGATIVE) U Benzodiazepine Level NEGATIVE (NEGATIVE) Urine Cocaine NEGATIVE (NEGATIVE) Urine Marijuana (THC) NEGATIVE (NEGATIVE) 07/06/22 07/06/22 Range/Units 15:45 15:45 WBC 5.4 (4.0-10.5) x10^3/uL RBC 4.10 (4.1-5.4) x10^6/uL Hgb 12.2 (12.0-16.0) g/dL Hct 37.5 (35-47) % MCV 91.5 (78-100) fL MCH 29.8 (26-32) pg MCHC 32.5 (32-36) g/dL RDW 13.4 (11.5-14.0) % Plt Count 206 (150-450) x10^3/uL MPV 9.8 (7.5-11.0) fL Gran % 56.8 (36.0-66.0) % Immature Gran % (Auto) 0.2 (0.00-0.4) % Nucleat RBC Rel Count 0.0 (0.00-0.1) % Eos # (Auto) 0.16 (0-0.5) x10^3/uL Immature Gran # (Auto) 0.01 (0.00-0.03) x10^3u/L Absolute Lymphs (auto) 1.77 (1.0-4.6) x10^3/uL Absolute Monos (auto) 0.34 (0.0-1.3) x10^3/uL Absolute Nucleated RBC 0.00 (0.00-0.01) x10^3u/L Lymphocytes % 32.8 (24.0-44.0) % Monocytes % 6.3 (0.0-12.0) % Eosinophils % 3.0 (0.00-5.0) % Basophils % 0.9 (0.0-0.4) % Absolute Granulocytes 3.07 (1.4-6.9) x10^3/uL Basophils # 0.05 (0-0.4) x10^3/uL PT (9.4-12.5) SECONDS INR (0.8-3.0) Sodium 135 L (137-145) mmol/L Potassium 4.2 (3.5-5.1) mmol/L Chloride 102 (98-107) mmol/L Carbon Dioxide 23 (22-30) mmol/L Anion Gap 14.0 (5-15) MEQ/L BUN 30 H (7-17) mg/dL Creatinine 1.15 H (0.52-1.04) mg/dL Estimated GFR 47.7 ML/MIN Glucose 188 H (74-106) mg/dL POC Glucometer (74 to 106) mg/dL Lactic Acid (0.4-2.0) Calcium 9.0 (8.4-10.2) mg/dL Total Bilirubin 0.60 (0.2-1.3) mg/dL AST 27 (14-36) U/L ALT 17 (0-35) U/L Alkaline Phosphatase 62 (38-126) U/L Troponin I (0.000-0.034) ng/mL Serum Total Protein 7.2 (6.3-8.2) g/dL Albumin 4.3 (3.5-5.0) g/dL Amylase 31 (30-110) U/L Lipase 18 L (23-300) U/L Urine Color (Yellow) Urine Appearance (Clear) Urine pH (4.6-8.0) Ur Specific [place] (1.005-1.030) Urine Protein (Negative) Urine Glucose (UA) (Negative) mg/dL Urine Ketones (Negative) Urine Blood (Negative) Urine Nitrite (Negative) Urine Bilirubin (Negative) Urine Urobilinogen (0.2) mg/dL Ur Leukocyte Esterase (Negative) U Hyaline Cast (Auto) (0-2) /LPF Urine Microscopic RBC (0-5) /HPF Urine Microscopic WBC (0-5) /HPF Ur Epithelial Cells (None Seen) /HPF Urine Bacteria (None Seen) /HPF Urine Culture Reflexed (NO) Urine Opiates Level (NEGATIVE) Ur Methadone (NEGATIVE) Urine Barbiturates (NEGATIVE) Ur Phencyclidine (PCP) (NEGATIVE) Urine Amphetamine (NEGATIVE) U Benzodiazepine Level (NEGATIVE) Urine Cocaine (NEGATIVE) Urine Marijuana (THC) (NEGATIVE) - Progress Progress: unchanged Progress Note: 07/06/22 18:21 Getting close to discharge she complained of shakiness because she has not eaten we directed nursing staff to check her blood sugar and give her something to eat. Medical Desision Making - Social Determinants of Health Limited access to: transportation - Diagnostic Testing Diagnostic test were ordered, analyzed, and reviewed by me: No Radiological Interpretation: Reviewed by me - Risk of complications The pt has a mod risk of morbidity or mortality based on: Need for prescription drug management - Departure Departure Disposition: Home Clinical Impression: Constipation, Urinary tract infection Condition: Stable Critical Care Time: No Referrals: AFTAB HOLDER DO [Primary Care Provider] - Follow up/PCP as directed Instructions: Severe Abdominal Pain, Adult (DC) Prescriptions: Smz/Tmp Ds Tablet [Bactrim Ds Tablet] 1 tab PO Q12H 10 Days #20 tablet
--- NOTE | 2022-07-06 18:15 | XRAY ---
Indication: Left abdomen pain and belching. Multiple contiguous axial images obtained through abdomen and pelvis without contrast. Comparison: September 08, 2019 Lung bases remain clear. Heart not enlarged. Noncontrasted stomach and bowel loops nonobstructed again with normal appendix. There remains mild diffuse scattered colonic fecal debris throughout including rectum. No free fluid/air. Remaining liver, gallbladder, pancreas, spleen, adrenal glands, kidneys, ureters, bladder, and uterus are unremarkable for noncontrast exam. Again heavy scattered aortoiliac calcifications without AAA. Osseous structures intact again with osteopenia and mild degenerative changes throughout the spine and both hips. No ventral or inguinal hernias. Impression: 1. Again mild diffuse fecal stasis, arteriosclerotic disease, and chronic bony findings. 2. Remaining CT abdomen/pelvis without contrast exam continues to be negative.
[2022-07-06 18:35] VITALS: BP 190/84; PULSE 62; O2SAT 98
== END 2022-07-06 18:53 | disposition home or self-care (01) ==
LOC: ED 15:28
DX: K59.00 Constipation, unspecified (principal); N39.0 Urinary tract infection, site not specified; R10.13 Epigastric pain; E11.9 Type 2 diabetes mellitus without complications; I10 Essential (primary) hypertension; I25.10 Atherosclerotic heart disease of native coronary artery without angina pectoris; Z79.4 Long term (current) use of insulin; Z79.899 Other long term (current) drug therapy
CPT/HCPCS: 36000; 36415; 71045; 74176; 80053; 80307; 81001; 82150; 82947; 83605; 83690; 84484; 85025; 85610; 87086; 93005; 96360; 99284; J2405; J3010; A9270-GY

== ENCOUNTER 2024-03-30 15:58 | Observation (INO) | payer MEDICARE ==
[2024-03-30 17:09] LABS: BASOPHIL % 0.5 % (0.1-1.2); Basophil (Absolute #) 0.03 x10^3/uL (0.01-0.08); Eosinophil % 1.6 % (0.7-5.8); Hematocrit 34.7 % (34.1-44.9); Hemoglobin 11.8 g/dL (11.2-15.7); IMMATURE GRAN # 0.01 x10^3u/L (0.001-0.031); IMMATURE GRAN % 0.2 % (0.001-0.429); Lymphocyte (Absolute #) 1.35 x10^3/uL (1.18-3.74); Lymphocytes % 21.6 % (19.3-51.7); Mean Cell Volume 88.5 fL (79.4-94.8); Mean Corpuscular Hemoglobin 30.1 pg (25.6-32.2); Mean Platelet Volume 9.7 fL (9.4-12.3); Monocyte (Absolute #) 0.36 x10^3/uL (0.24-0.86); Monocytes % 5.8 % (4.7-12.5); Neutrophil % 70.3 % (34.0-71.1); Platelet Count 200 x10^3/uL (182-369); Red Blood Count 3.92 x10^6/uL (3.93-5.22); White Blood Count 6.3 x10^3/uL (3.98-10.04)
--- NOTE | 2024-03-30 17:28 | XRAY ---
Indication: General weakness. Comparison: July 06, 2022 Portable chest remains hyperinflated and clear. Heart not enlarged again with CABG. Bony thorax intact again with osteopenia and degenerative changes. No new/acute findings.
--- NOTE | 2024-03-30 17:29 | ERPHSYRPT ---
- History of Present Illness Time Seen by Provider: 03/30/24 16:00 Source: patient Exam Limitations: no limitations Patient Subjective Stated Complaint: C/O "not feeling right" since yesterday but it is worse today. Denies any pain or SOB. When asked what she means by "not feeling right" patient states she is dizzy. Denies falls. Triage Nursing Assessment: Patient brought back to ER in a W/C. She transferred self from chair to bed. No SOB. She is alert and oriented; a little hard of hearing. WERNER FERRARO. Physician History: 88-year-old female with history of hypertension, hyperlipidemia, diabetes mellitus, coronary artery disease with CABG presented in the ER with complaining of generalized weakness fatigue and tiredness. Patient reports "I am not feeling well since yesterday". Patient reports she feels lightheaded with standing up and feels as if she is going to pass out. She does not have any loss of consciousness or fall. Patient reports shaking all over. No fever or chills reported. Denies any chest pain palpitations or shortness of breath. Denies any numbness tingling or focal weakness. No abdominal pain nausea or vomiting. No known sick contact. Patient thinks it is her blood sugar which is going low but her sugar was 180 in the ER. Allergies/Adverse Reactions: Penicillins Allergy (Verified 03/30/24 16:18) Hives codeine Adverse Reaction (Verified 03/30/24 16:18) HYPER Home Medications: Aspirin 81 gm Chew [Baby Aspirin 81 mg Chew] 81 mg PO DAILY 01/02/13 [History] Insulin Glargine [Lantus Insulin] 12 unit SQ DAILY 01/02/13 [History] Amlodipine Besylate 5 mg [Norvasc 5 mg] 5 mg PO DAILY 03/30/22 [History] Metoprolol Tartrate 25 mg [Lopressor 25MG Tab] 25 mg PO DAILY 03/30/22 [History] Insulin Lispro [Humalog] 100 unit SQ UD 07/06/22 [History] Hx Tetanus, Diphtheria Vaccination/Date Given: Yes Hx Influenza Vaccination/Date Given: Yes Hx Pneumococcal Vaccination/Date Given: Yes Immunizations Up to Date: Yes Travel Risk - International Travel Have you traveled outside of the country in past 3 weeks: No - Emerging Infectious Disease Are you exhibiting symptoms associated with any current EIDs: No - Review of Systems Constitutional: Fatigue, Weakness Eyes: No Symptoms Ears, Nose, & Throat: No Symptoms Respiratory: No Symptoms Cardiac: No Symptoms Abdominal/Gastrointestinal: No Symptoms Genitourinary Symptoms: No Symptoms Musculoskeletal: Arthralgias Skin: No Symptoms Neurological: Dizziness Endocrine: No Symptoms Hematologic/Lymphatic: No Symptoms Immunological/Allergic: No Symptoms - Past Medical History Pertinent Past Medical History: Yes Neurological History: No Pertinent History ENT History: No Pertinent History Cardiac History: Coronary Artery Disease, Hypertension Respiratory History: No Pertinent History Endocrine Medical History: Diabetes Type II Musculoskeletal History: No Pertinent History GI Medical History: No Pertinent History History: No Pertinent History Psycho-Social History: No Pertinent History Female Reproductive Disorders: No Pertinent History Other Medical History: SKIN cancer removed off of face - Past Surgical History Past Surgical History: Yes Neuro Surgical History: No Pertinent History Cardiac: CABG Respiratory: No Pertinent History Gastrointestinal: No Pertinent History Genitourinary: No Pertinent History Musculoskeletal: Orthopedic Surgery Female Surgical History: No Pertinent History Other Surgical History: right ankle surgery - Social History Smoking Status: Never smoker Exposure to second hand smoke: No Drug Use: none Patient Lives Alone: No ( is 87 yrs old and need a lot of care) - Social Determinants of Health Will the patient participate in the screening: Declined to provide - Nursing Vital Signs Nursing Vital Signs: Initial Vital Signs Temperature 97.9 F 03/30/24 16:15 Pulse Rate 63 03/30/24 16:15 Respiratory Rate 17 03/30/24 16:15 Blood Pressure 212/76 03/30/24 16:15 O2 Sat by Pulse Oximetry 100 03/30/24 16:15 Pain Scale Pain Intensity 0 - Physical Exam General Appearance: no apparent distress, alert, anxiety Eye Exam: PERRL/EOMI, eyes nml inspection Ears, Nose, Throat Exam: normal ENT inspection Neck Exam: normal inspection, supple, full range of motion Respiratory Exam: normal breath sounds, lungs clear Cardiovascular Exam: regular rate/rhythm, normal heart sounds Gastrointestinal/Abdomen Exam: soft, normal bowel sounds, No tenderness Extremity Exam: normal inspection, normal range of motion Neurologic Exam: alert, oriented x 3, cooperative, information security associate II-XII nml as tested, nml cerebellar function, nml station & gait, sensation nml, No normal mood/affect, No motor deficits Skin Exam: normal color SpO2 Interpretation: normal SpO2: 100 O2 Delivery: Room Air - Course EKG Interpreted by Me: RATE ([id number]), Sinus Cu[place]htemoc, NORMAL AXIS, Non-specific ST Changes Ordered Tests: Active Orders 24 hr Category Date Time Status Enterprise Infrastructure Architect STAT Care 03/30/24 16:36 Active EKG-ER Only STAT Care 03/30/24 16:31 Active IV Insertion STAT Care 03/30/24 16:31 Active Orthostatic Vital Signs STAT Care 03/30/24 16:31 Active POCT Glucose Check STAT Care 03/30/24 16:31 Active CHEST 1 VIEW (PORTABLE) Stat Exams 03/30/24 16:[address] ANGIOGRAPHY NECK [CT] Stat Exams 03/30/24 20:05 Ordered CTA HEAD W AND/OR WO CONTRAST [CT] Stat Exams 03/30/24 20:05 Ordered HEAD WITHOUT CONTRAST [CT] Stat Exams 03/30/24 16:36 Taken CBC W DIFF Stat Lab 03/30/24 17:00 Completed CMP Routine Lab 03/30/24 16:31 Completed Lactic Acid Stat Lab 03/30/24 16:31 Completed MAGNESIUM Stat Lab 03/30/24 17:00 Completed POCT GLUCOSE Stat Lab 03/30/24 16:42 Completed TROPONIN Q4H Lab 03/30/24 17:00 Completed TROPONIN Q4H Lab 03/30/24 19:55 Completed TROPONIN Q4H Lab 03/31/24 00:45 Ordered UA W/RFX UR CULTURE Stat Lab 03/30/24 17:34 Completed Medication Summary Discontinued Medications Generic Name Dose Route Start Last Admin Trade Name Freq PRN Reason Stop Dose Admin Hydralazine HCl 10 mg 03/30/24 17:42 03/30/24 17:53 Hydralazine Hcl 20 Mg/Ml Vial IV 03/30/24 17:43 10 mg STAT ONE Administration Hydralazine HCl Confirm 03/30/24 17:47 Hydralazine Hcl 20 Mg/Ml Vial Administered 03/30/24 17:48 Dose 20 mg .ROUTE .STK-MED ONE Hydralazine HCl 10 mg 03/30/24 19:52 03/30/24 20:03 Hydralazine Hcl 20 Mg/Ml Vial IV 03/30/24 19:53 10 mg STAT ONE Administration Hydralazine HCl Confirm 03/30/24 20:01 Hydralazine Hcl 20 Mg/Ml Vial Administered 03/30/24 20:02 Dose 20 mg .ROUTE .STK-MED ONE Lab/Rad Data: Laboratory Result Diagrams 03/30/24 17:00 03/30/24 16:31 Laboratory Results 03/30/24 03/30/24 03/30/24 Range/Units 19:55 17:34 17:00 WBC (3.98-10.04) x10^3/uL RBC (3.93-5.22) x10^6/uL Hgb (11.2-15.7) g/dL Hct (34.1-44.9) % MCV (79.4-94.8) fL MCH (25.6-32.2) pg MCHC (32.2-35.5) g/dL RDW (11.7-14.4) % Plt Count (182-369) x10^3/uL MPV (9.4-12.3) fL Gran % (34.0-71.1) % Immature Gran % (Auto) (0.001-0.429) % Nucleat RBC Rel Count (0.00-0.2) % Eos # (Auto) (0.04-0.36) x10^3/uL Immature Gran # (Auto) (0.001-0.031) x10^3u/L Absolute Lymphs (auto) (1.18-3.74) x10^3/uL Absolute Monos (auto) (0.24-0.86) x10^3/uL Absolute Nucleated RBC (0.00-0.012) x10^3u/L Lymphocytes % (19.3-51.7) % Monocytes % (4.7-12.5) % Eosinophils % (0.7-5.8) % Basophils % (0.1-1.2) % Absolute Granulocytes (1.56-6.13) x10^3/uL Basophils # (0.01-0.08) x10^3/uL Sodium (135-145) mmol/L Potassium (3.5-5.1) mmol/L Chloride (98-107) mmol/L Carbon Dioxide (22-30) mmol/L Anion Gap (5-15) MEQ/L BUN (7-17) mg/dL Creatinine (0.52-1.04) mg/dL Estimated GFR ML/MIN Glucose (74-106) mg/dL POC Glucometer (74 to 106) mg/dL Lactic Acid (0.4-2.0) Calcium (8.4-10.2) mg/dL Magnesium (1.6-2.3) mg/dL Total Bilirubin (0.2-1.3) mg/dL AST (14-36) U/L ALT (0-35) U/L Alkaline Phosphatase (38-126) U/L Troponin I 0.016 0.014 (0.000-0.033) ng/mL Serum Total Protein (6.3-8.2) g/dL Albumin (3.5-5.0) g/dL Urine Color Yellow (Yellow) Urine Appearance Clear (Clear) Urine pH 6.0 (4.6-8.0) Ur Specific [place] 1.010 (1.005-1.030) Urine Protein Negative (Negative) Urine Glucose (UA) 250 A (Negative) mg/dL Urine Ketones Negative (Negative) Urine Blood Negative (Negative) Urine Nitrite Negative (Negative) Urine Bilirubin Negative (Negative) Urine Urobilinogen 0.2 (0.2) mg/dL Ur Leukocyte Esterase Trace A (Negative) U Hyaline Cast (Auto) NONE SEEN (0-2) /LPF Urine Microscopic RBC 0-2 (0-5) /HPF Urine Microscopic WBC 3-5 (0-5) /HPF Ur Epithelial Cells None Seen (None Seen) /HPF Urine Bacteria None Seen (None Seen) /HPF Urine Culture Reflexed NO (NO) 03/30/24 03/30/24 03/30/24 Range/Units 17:00 17:00 16:42 WBC 6.3 (3.98-10.04) x10^3/uL RBC 3.92 L (3.93-5.22) x10^6/uL Hgb 11.8 (11.2-15.7) g/dL Hct 34.7 (34.1-44.9) % MCV 88.5 (79.4-94.8) fL MCH 30.1 (25.6-32.2) pg MCHC 34.0 (32.2-35.5) g/dL RDW 13.0 (11.7-14.4) % Plt Count 200 (182-369) x10^3/uL MPV 9.7 (9.4-12.3) fL Gran % 70.3 (34.0-71.1) % Immature Gran % (Auto) 0.2 (0.001-0.429) % Nucleat RBC Rel Count 0.0 (0.00-0.2) % Eos # (Auto) 0.10 (0.04-0.36) x10^3/uL Immature Gran # (Auto) 0.01 (0.001-0.031) x10^3u/L Absolute Lymphs (auto) 1.35 (1.18-3.74) x10^3/uL Absolute Monos (auto) 0.36 (0.24-0.86) x10^3/uL Absolute Nucleated RBC 0.00 (0.00-0.012) x10^3u/L Lymphocytes % 21.6 (19.3-51.7) % Monocytes % 5.8 (4.7-12.5) % Eosinophils % 1.6 (0.7-5.8) % Basophils % 0.5 (0.1-1.2) % Absolute Granulocytes 4.40 (1.56-6.13) x10^3/uL Basophils # 0.03 (0.01-0.08) x10^3/uL Sodium (135-145) mmol/L Potassium (3.5-5.1) mmol/L Chloride (98-107) mmol/L Carbon Dioxide (22-30) mmol/L Anion Gap (5-15) MEQ/L BUN (7-17) mg/dL Creatinine (0.52-1.04) mg/dL Estimated GFR ML/MIN Glucose (74-106) mg/dL POC Glucometer 180 H (74 to 106) mg/dL Lactic Acid (0.4-2.0) Calcium (8.4-10.2) mg/dL Magnesium 2.0 (1.6-2.3) mg/dL Total Bilirubin (0.2-1.3) mg/dL AST (14-36) U/L ALT (0-35) U/L Alkaline Phosphatase (38-126) U/L Troponin I (0.000-0.033) ng/mL Serum Total Protein (6.3-8.2) g/dL Albumin (3.5-5.0) g/dL Urine Color (Yellow) Urine Appearance (Clear) Urine pH (4.6-8.0) Ur Specific [place] (1.005-1.030) Urine Protein (Negative) Urine Glucose (UA) (Negative) mg/dL Urine Ketones (Negative) Urine Blood (Negative) Urine Nitrite (Negative) Urine Bilirubin (Negative) Urine Urobilinogen (0.2) mg/dL Ur Leukocyte Esterase (Negative) U Hyaline Cast (Auto) (0-2) /LPF Urine Microscopic RBC (0-5) /HPF Urine Microscopic WBC (0-5) /HPF Ur Epithelial Cells (None Seen) /HPF Urine Bacteria (None Seen) /HPF Urine Culture Reflexed (NO) 03/30/24 03/30/24 Range/Units 16:31 16:31 WBC (3.98-10.04) x10^3/uL RBC (3.93-5.22) x10^6/uL Hgb (11.2-15.7) g/dL Hct (34.1-44.9) % MCV (79.4-94.8) fL MCH (25.6-32.2) pg MCHC (32.2-35.5) g/dL RDW (11.7-14.4) % Plt Count (182-369) x10^3/uL MPV (9.4-12.3) fL Gran % (34.0-71.1) % Immature Gran % (Auto) (0.001-0.429) % Nucleat RBC Rel Count (0.00-0.2) % Eos # (Auto) (0.04-0.36) x10^3/uL Immature Gran # (Auto) (0.001-0.031) x10^3u/L Absolute Lymphs (auto) (1.18-3.74) x10^3/uL Absolute Monos (auto) (0.24-0.86) x10^3/uL Absolute Nucleated RBC (0.00-0.012) x10^3u/L Lymphocytes % (19.3-51.7) % Monocytes % (4.7-12.5) % Eosinophils % (0.7-5.8) % Basophils % (0.1-1.2) % Absolute Granulocytes (1.56-6.13) x10^3/uL Basophils # (0.01-0.08) x10^3/uL Sodium 129 L (135-145) mmol/L Potassium 3.9 (3.5-5.1) mmol/L Chloride 96 L (98-107) mmol/L Carbon Dioxide 25 (22-30) mmol/L Anion Gap 11.8 (5-15) MEQ/L BUN 23 H (7-17) mg/dL Creatinine 1.26 H (0.52-1.04) mg/dL Estimated GFR 41.3 ML/MIN Glucose 164 H (74-106) mg/dL POC Glucometer (74 to 106) mg/dL Lactic Acid 1.1 (0.4-2.0) Calcium 9.4 (8.4-10.2) mg/dL Magnesium (1.6-2.3) mg/dL Total Bilirubin 0.50 (0.2-1.3) mg/dL AST 30 (14-36) U/L ALT 18 (0-35) U/L Alkaline Phosphatase 65 (38-126) U/L Troponin I (0.000-0.033) ng/mL Serum Total Protein 7.3 (6.3-8.2) g/dL Albumin 4.5 (3.5-5.0) g/dL Urine Color (Yellow) Urine Appearance (Clear) Urine pH (4.6-8.0) Ur Specific [place] (1.005-1.030) Urine Protein (Negative) Urine Glucose (UA) (Negative) mg/dL Urine Ketones (Negative) Urine Blood (Negative) Urine Nitrite (Negative) Urine Bilirubin (Negative) Urine Urobilinogen (0.2) mg/dL Ur Leukocyte Esterase (Negative) U Hyaline Cast (Auto) (0-2) /LPF Urine Microscopic RBC (0-5) /HPF Urine Microscopic WBC (0-5) /HPF Ur Epithelial Cells (None Seen) /HPF Urine Bacteria (None Seen) /HPF Urine Culture Reflexed (NO) - Progress Progress: improved Progress Note: 03/30/24 20:50 88-year-old is evaluated in the ER for generalized weakness fatigue tiredness and feeling lightheaded/dizzy with nonfocal neuroexam. EKG did not show any acute ST elevations. Patient blood pressure was in 260s, no focal neurodeficit. No papilledema. She is given hydralazine 10 mg x 2 and on reevaluation it is in 170s. Patient later on reported she did not have her routine dose of antihypertensives today. Chest x-ray is negative for any acute cardiopulmonary findings reviewed by me, official report is pending. CT head is negative for any acute intracranial findings per preliminary report, official report is pending. Has normal white count, chemistries with a sodium of 129 which is a little lower than the baseline in the low 130s, has a creatinine of 1.2 and a GFR of 41. Patient does have chronic kidney disease and it is around baseline. No definite UTI. Troponins are negative. On reevaluation patient is feeling better. I believe patient's symptoms are secondary to uncontrolled hypertension related. I have discussed with Dr. Schneider, reviewed history, workup, recommended obtaining CTAs but patient has low GFR per radiology requirements here at [facility]. I have discussed with Dr. Schneider again and he is okay with admitting patient without CTAs. Patient neuroexam remained nonfocal. Discussed with .: Sang Will see patient in: hospital (observation) Counseled pt/family regarding: lab results, diagnosis, rad results Medical Desision Making - Discussion of managment Care discussed with:: hospitalist (Dr. Schneider) Reviewed:: Test results Agreed on:: Treatment plan, place in obs Will see patient: in hospital - Diagnostic Testing Diagnostic test were ordered, analyzed, and reviewed by me: Yes Radiological Interpretation: Interpreted by me, Reviewed by me, Teleradiologist Report - Risk of complications The pt has a mod risk of morbidity or mortality based on: Need for prescription drug management The pt has a high risk of morbidity or mortality based on: Decision regarding hospitilization or escalation of hosp level of care - Departure Departure Disposition: Observation Clinical Impression: Hypertensive urgency, Dizziness Condition: Stable Critical Care Time: No Referrals: AFTAB HOLDER DO [Primary Care Provider] - Follow up/PCP as directed
[2024-03-30] MEDS ORDERED: APRESOLINE 20 MG/ML INJ ONE ×2 (17:47→20:01)
[2024-03-30] MEDS: APRESOLINE 20 MG/ML INJ IV ONE ×2 (17:53→20:03)
[2024-03-30 18:21] LABS: ALBUMIN 4.5 g/dL (3.5-5.0); ANION GAP 11.8 MEQ/L (5-15); BILIRUBIN,TOTAL 0.5 mg/dL (0.2-1.3); Calcium 9.4 mg/dL (8.4-10.2); Creatinine 1 1.26 mg/dL (0.52-1.04); EST GLOMERULAR FILTRATION RATE 41.3 ML/MIN; Potassium 3.9 mmol/L (3.5-5.1); Total Protein 7.3 g/dL (6.3-8.2)
[2024-03-30 18:24] LABS: Appearance Clear (Clear); Bacteria None Seen /HPF (None Seen); Bilirubin Negative (Negative); Blood Negative (Negative); Epithelial Cells None Seen /HPF (None Seen); Glucose, Urine 250 mg/dL (Negative); Hyaline Casts NONE SEEN /LPF (0-2); Ketones Negative (Negative); Leukocyte Esterase Trace (Negative); Nitrite Negative (Negative); Protein,Urine Dip Negative (Negative); RBC 0-2 /HPF (0-5); Urobilinogen 0.2 mg/dL (0.2)
[2024-03-31] MEDS: xanAX 0.5 MG PO PRN (00:30)
[2024-03-31 05:55] LABS: Hematocrit 33.5 % (34.1-44.9); Hemoglobin 11.2 g/dL (11.2-15.7); Mean Cell Volume 88.9 fL (79.4-94.8); Mean Corpuscular Hemoglobin 29.7 pg (25.6-32.2); Mean Corpuscular Hgb Concent. 33.4 g/dL (32.2-35.5); Mean Platelet Volume 10.7 fL (9.4-12.3); Platelet Count 203 x10^3/uL (182-369); Red Blood Count 3.77 x10^6/uL (3.93-5.22); Red Cell Distribution Width 12.9 % (11.7-14.4); White Blood Count 6.8 x10^3/uL (3.98-10.04)
[2024-03-31 06:06] LABS: ALBUMIN 3.6 g/dL (3.5-5.0); ANION GAP 10.9 MEQ/L (5-15); BILIRUBIN,TOTAL 0.3 mg/dL (0.2-1.3); Calcium 8.6 mg/dL (8.4-10.2); Creatinine 1 1.46 mg/dL (0.52-1.04); EST GLOMERULAR FILTRATION RATE 34.6 ML/MIN; Potassium 3.9 mmol/L (3.5-5.1); Total Protein 6.2 g/dL (6.3-8.2)
--- NOTE | 2024-03-31 08:43 | XRAY ---
Indication: Dizziness, weakness, and shaking. Multiple contiguous axial images obtained through the head without contrast. Comparison: None Age-appropriate global atrophy, mild periventricular degenerative micro-ischemia bilaterally, and left basal ganglia remote lacunar infarct. No acute intracranial hemorrhage, abnormal extra-axial fluid collection, or mass effect. Fourth ventricle is midline without hydrocephalus. Bony calvarium intact. Visualized paranasal sinuses and mastoid air cells are clear. 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
[2024-03-31] MEDS: Lantus Insulin SQ SCH (11:49)
[2024-03-31] MEDS: ECOTRIN 81 MG PO SCH (11:49)
[2024-03-31] MEDS: NORVASC 5 MG PO SCH (11:49)
[2024-03-31] MEDS: Lopressor 25MG Tab PO SCH (11:49)
[2024-03-31] MEDS: Docusate Sodium 100 MG PO SCH (13:24)
--- NOTE | 2024-03-31 14:33 | PCM.HP ---
History of Present Illness - Chief Complaint Chief Complaint: Hypertensive urgency/dizziness Date: 03/31/24 History of Present Illness: Ms. Brooks is an 88 year-old female with HTN, HLD, DM2, and CAD s/p CABG who presents with weakness and dizziness. She admits to one day of these symptoms in the setting of not having taken her blood pressure medications today, and upon arrival, her blood pressure was noted to be 260s/140s. Laboratory data was remarable for an elevated troponin, an CATALINA, and hyponatremia, while imaging was unremarkable. On my examination, her blood pressure is now 180s/90s, and she currently denies fevers, chills, nausea, vomiting, diarrhea, syncope, presyncope, visual changes, orthopnea, PND, odynophagia, dysphagia, chest pain, shortness of breath, belly pain, dysuria, hematuria, melena, hematochezia, or neurological changes. All other systems were reviewed and were negative. - Review of Systems Constitutional: Fatigue, Lethargy Eyes: No Symptoms Ears, Nose, & Throat: No Symptoms Respiratory: No Symptoms, No Cough, No Short Of Breath Cardiac: No Symptoms, No Chest Pain, No Edema, No Syncope Abdominal/Gastrointestinal: No Symptoms, No Abdominal Pain, No Nausea, No Vomiting, No Diarrhea Genitourinary Symptoms: No Symptoms, No Dysuria Musculoskeletal: No Symptoms, No Back Pain, No Neck Pain Skin: No Symptoms, No Rash Neurological: Dizziness, No Focal Weakness, No Sensory Changes Psychological: No Symptoms Endocrine: No Symptoms Hematologic/Lymphatic: No Symptoms Immunological/Allergic: No Symptoms Medications & Allergies Home Medications: Home Medication List Aspirin 81 gm Chew [Baby Aspirin 81 mg Chew] 81 mg PO DAILY 01/02/13 [History Confirmed 03/30/24] Insulin Glargine [Lantus Insulin] 12 unit SQ DAILY 01/02/13 [History Confirmed 03/30/24] Amlodipine Besylate 5 mg [Norvasc 5 mg] 5 mg PO DAILY 03/30/22 [History Confirmed 03/30/24] Metoprolol Tartrate 25 mg [Lopressor 25MG Tab] 25 mg PO DAILY 03/30/22 [History Confirmed 03/30/24] Insulin Lispro [Humalog] 100 unit SQ UD 07/06/22 [History Confirmed 03/30/24] Allergies/Adverse Reactions: Allergies Allergy/AdvReac Type Severity Reaction Status Date / Time Penicillins Allergy Hives Verified 03/30/24 16:18 codeine AdvReac Verified 03/30/24 16:18 - Past Medical History Past Medical History: Yes Neurological History: No Pertinent History ENT History: No Pertinent History Cardiac History: Coronary Artery Disease, Hypertension Respiratory History: No Pertinent History Endocrine Medical History: Diabetes Type II Musculoskelatal History: No Pertinent History GI Medical History: No Pertinent History History: No Pertinent History Pyscho-Social History: No Pertinent History Reproductive Disorders: No Pertinent History Comment: SKIN cancer removed off of face - Past Surgical History Past Surgical History: Yes Neuro Surgical History: No Pertinent History Cardiac History: CABG Respiratory Surgery: No Pertinent History GI Surgical History: No Pertinent History Genitourinary Surgical Hx: No Pertinent History Musculskeletal Surgical Hx: Orthopedic Surgery Female Surgical History: No Pertinent History Other Surgical History: right ankle surgery - Social History Smoking Status: Never smoker Exposure to second hand smoke: No Alcohol: Rarely Drug Use: none - Social Determinants of Health Will the patient participate in the screening: Yes Do you worry about a steady place to live?: No Do you have any problems with any of the following?: No known problems In the past 12 months,have you had to go without utilities?: No Have you or anyone in your house had to go without enough: No Transportation Issues: No Has anyone in your support network made you feel unsafe?: No Does the patient want assistance with any of the above?: No - Physical Exam Vital Signs: Vital Signs - 24 hr Temp Pulse Resp BP BP Pulse Ox 03/31/24 11:00 97.8 F 64 16 176/77 95 03/31/24 07:00 98.5 F 68 16 168/72 96 03/31/24 03:09 98 F 68 18 181/79 95 03/30/24 23:52 97.8 F 80 18 172/72 98 03/30/24 21:48 96.9 F 77 18 143/64 99 03/30/24 21:04 100 03/30/24 21:00 75 12 148/62 99 03/30/24 20:50 76 8 L 152/66 99 03/30/24 20:40 79 13 165/67 99 03/30/24 20:30 76 9 L 156/63 100 03/30/24 20:20 78 12 165/65 99 03/30/24 20:10 75 12 176/77 100 03/30/24 20:00 69 16 177/82 100 03/30/24 19:53 74 12 195/75 99 03/30/24 19:50 71 10 L 207/79 99 03/30/24 19:40 70 8 L 190/76 100 03/30/24 19:30 74 11 L 189/78 99 03/30/24 19:20 71 10 L 198/73 99 03/30/24 19:10 74 10 L 184/72 99 03/30/24 19:00 75 13 168/69 99 03/30/24 18:50 78 8 L 170/68 100 03/30/24 18:40 83 14 160/71 100 03/30/24 18:30 78 17 161/75 100 03/30/24 18:20 87 14 186/74 100 03/30/24 18:10 63 12 189/82 100 03/30/24 18:00 67 12 197/103 100 03/30/24 17:58 61 17 222/88 100 03/30/24 17:52 59 L 20 209/107 99 03/30/24 17:50 67 14 229/90 100 03/30/24 17:48 60 10 L 230/91 99 03/30/24 17:41 56 L 13 232/97 03/30/24 17:34 60 15 262/108 100 03/30/24 17:33 67 16 99 03/30/24 17:10 56 L 10 L 99 03/30/24 17:02 59 L 9 L 100 03/30/24 16:30 65 13 197/97 100 03/30/24 16:18 62 18 100 03/30/24 16:17 63 14 99 03/30/24 16:15 97.9 F 63 17 212/76 100 General Appearance: no apparent distress, alert Neurologic Exam: alert, oriented x 3, cooperative, normal mood/affect, nml cerebellar function, nml station & gait, sensation nml, No motor deficits Eye Exam: PERRL/EOMI, eyes nml inspection Ears, Nose, Throat Exam: normal ENT inspection, TMs normal, pharynx normal, moist mucous membranes Neck Exam: normal inspection, non-tender, supple, full range of motion Respiratory Exam: normal breath sounds, lungs clear, No respiratory distress Cardiovascular Exam: regular rate/rhythm, normal heart sounds, normal peripheral pulses Gastrointestinal/Abdomen Exam: soft, normal bowel sounds, No tenderness, No mass Back Exam: normal inspection, normal range of motion, No CVA tenderness, No vertebral tenderness Extremity Exam: normal inspection, normal range of motion, pelvis stable Skin Exam: normal color, warm, dry, No rash Lymphatic Exam: No adenopathy Results - Labs Lab/Micro Results: Lab Results-Last 24 Hours 03/30/24 03/30/24 03/30/24 Range/Units 16:31 16:31 16:42 WBC (3.98-10.04) x10^3/uL RBC (3.93-5.22) x10^6/uL Hgb (11.2-15.7) g/dL Hct (34.1-44.9) % MCV (79.4-94.8) fL MCH (25.6-32.2) pg MCHC (32.2-35.5) g/dL RDW (11.7-14.4) % Plt Count (182-369) x10^3/uL MPV (9.4-12.3) fL Gran % (34.0-71.1) % Immature Gran % (Auto) (0.001-0.429) % Nucleat RBC Rel Count (0.00-0.2) % Eos # (Auto) (0.04-0.36) x10^3/uL Immature Gran # (Auto) (0.001-0.031) x10^3u/L Absolute Lymphs (auto) (1.18-3.74) x10^3/uL Absolute Monos (auto) (0.24-0.86) x10^3/uL Absolute Nucleated RBC (0.00-0.012) x10^3u/L Lymphocytes % (19.3-51.7) % Monocytes % (4.7-12.5) % Eosinophils % (0.7-5.8) % Basophils % (0.1-1.2) % Absolute Granulocytes (1.56-6.13) x10^3/uL Basophils # (0.01-0.08) x10^3/uL Sodium 129 L (135-145) mmol/L Potassium 3.9 (3.5-5.1) mmol/L Chloride 96 L (98-107) mmol/L Carbon Dioxide 25 (22-30) mmol/L Anion Gap 11.8 (5-15) MEQ/L BUN 23 H (7-17) mg/dL Creatinine 1.26 H (0.52-1.04) mg/dL Estimated GFR 41.3 ML/MIN Glucose 164 H (74-106) mg/dL POC Glucometer 180 H (74 to 106) mg/dL Lactic Acid 1.1 (0.4-2.0) Calcium 9.4 (8.4-10.2) mg/dL Magnesium (1.6-2.3) mg/dL Total Bilirubin 0.50 (0.2-1.3) mg/dL AST 30 (14-36) U/L ALT 18 (0-35) U/L Alkaline Phosphatase 65 (38-126) U/L Troponin I (0.000-0.033) ng/mL Serum Total Protein 7.3 (6.3-8.2) g/dL Albumin 4.5 (3.5-5.0) g/dL Urine Color (Yellow) Urine Appearance (Clear) Urine pH (4.6-8.0) Ur Specific [place] (1.005-1.030) Urine Protein (Negative) Urine Glucose (UA) (Negative) mg/dL Urine Ketones (Negative) Urine Blood (Negative) Urine Nitrite (Negative) Urine Bilirubin (Negative) Urine Urobilinogen (0.2) mg/dL Ur Leukocyte Esterase (Negative) U Hyaline Cast (Auto) (0-2) /LPF Urine Microscopic RBC (0-5) /HPF Urine Microscopic WBC (0-5) /HPF Ur Epithelial Cells (None Seen) /HPF Urine Bacteria (None Seen) /HPF Urine Culture Reflexed (NO) 03/30/24 03/30/24 03/30/24 Range/Units 17:00 17:00 17:00 WBC 6.3 (3.98-10.04) x10^3/uL RBC 3.92 L (3.93-5.22) x10^6/uL Hgb 11.8 (11.2-15.7) g/dL Hct 34.7 (34.1-44.9) % MCV 88.5 (79.4-94.8) fL MCH 30.1 (25.6-32.2) pg MCHC 34.0 (32.2-35.5) g/dL RDW 13.0 (11.7-14.4) % Plt Count 200 (182-369) x10^3/uL MPV 9.7 (9.4-12.3) fL Gran % 70.3 (34.0-71.1) % Immature Gran % (Auto) 0.2 (0.001-0.429) % Nucleat RBC Rel Count 0.0 (0.00-0.2) % Eos # (Auto) 0.10 (0.04-0.36) x10^3/uL Immature Gran # (Auto) 0.01 (0.001-0.031) x10^3u/L Absolute Lymphs (auto) 1.35 (1.18-3.74) x10^3/uL Absolute Monos (auto) 0.36 (0.24-0.86) x10^3/uL Absolute Nucleated RBC 0.00 (0.00-0.012) x10^3u/L Lymphocytes % 21.6 (19.3-51.7) % Monocytes % 5.8 (4.7-12.5) % Eosinophils % 1.6 (0.7-5.8) % Basophils % 0.5 (0.1-1.2) % Absolute Granulocytes 4.40 (1.56-6.13) x10^3/uL Basophils # 0.03 (0.01-0.08) x10^3/uL Sodium (135-145) mmol/L Potassium (3.5-5.1) mmol/L Chloride (98-107) mmol/L Carbon Dioxide (22-30) mmol/L Anion Gap (5-15) MEQ/L BUN (7-17) mg/dL Creatinine (0.52-1.04) mg/dL Estimated GFR ML/MIN Glucose (74-106) mg/dL POC Glucometer (74 to 106) mg/dL Lactic Acid (0.4-2.0) Calcium (8.4-10.2) mg/dL Magnesium 2.0 (1.6-2.3) mg/dL Total Bilirubin (0.2-1.3) mg/dL AST (14-36) U/L ALT (0-35) U/L Alkaline Phosphatase (38-126) U/L Troponin I 0.014 (0.000-0.033) ng/mL Serum Total Protein (6.3-8.2) g/dL Albumin (3.5-5.0) g/dL Urine Color (Yellow) Urine Appearance (Clear) Urine pH (4.6-8.0) Ur Specific [place] (1.005-1.030) Urine Protein (Negative) Urine Glucose (UA) (Negative) mg/dL Urine Ketones (Negative) Urine Blood (Negative) Urine Nitrite (Negative) Urine Bilirubin (Negative) Urine Urobilinogen (0.2) mg/dL Ur Leukocyte Esterase (Negative) U Hyaline Cast (Auto) (0-2) /LPF Urine Microscopic RBC (0-5) /HPF Urine Microscopic WBC (0-5) /HPF Ur Epithelial Cells (None Seen) /HPF Urine Bacteria (None Seen) /HPF Urine Culture Reflexed (NO) 03/30/24 03/30/24 03/30/24 Range/Units 17:34 19:55 22:01 WBC (3.98-10.04) x10^3/uL RBC (3.93-5.22) x10^6/uL Hgb (11.2-15.7) g/dL Hct (34.1-44.9) % MCV (79.4-94.8) fL MCH (25.6-32.2) pg MCHC (32.2-35.5) g/dL RDW (11.7-14.4) % Plt Count (182-369) x10^3/uL MPV (9.4-12.3) fL Gran % (34.0-71.1) % Immature Gran % (Auto) (0.001-0.429) % Nucleat RBC Rel Count (0.00-0.2) % Eos # (Auto) (0.04-0.36) x10^3/uL Immature Gran # (Auto) (0.001-0.031) x10^3u/L Absolute Lymphs (auto) (1.18-3.74) x10^3/uL Absolute Monos (auto) (0.24-0.86) x10^3/uL Absolute Nucleated RBC (0.00-0.012) x10^3u/L Lymphocytes % (19.3-51.7) % Monocytes % (4.7-12.5) % Eosinophils % (0.7-5.8) % Basophils % (0.1-1.2) % Absolute Granulocytes (1.56-6.13) x10^3/uL Basophils # (0.01-0.08) x10^3/uL Sodium (135-145) mmol/L Potassium (3.5-5.1) mmol/L Chloride (98-107) mmol/L Carbon Dioxide (22-30) mmol/L Anion Gap (5-15) MEQ/L BUN (7-17) mg/dL Creatinine (0.52-1.04) mg/dL Estimated GFR ML/MIN Glucose (74-106) mg/dL POC Glucometer 126 H (74 to 106) mg/dL Lactic Acid (0.4-2.0) Calcium (8.4-10.2) mg/dL Magnesium (1.6-2.3) mg/dL Total Bilirubin (0.2-1.3) mg/dL AST (14-36) U/L ALT (0-35) U/L Alkaline Phosphatase (38-126) U/L Troponin I 0.016 (0.000-0.033) ng/mL Serum Total Protein (6.3-8.2) g/dL Albumin (3.5-5.0) g/dL Urine Color Yellow (Yellow) Urine Appearance Clear (Clear) Urine pH 6.0 (4.6-8.0) Ur Specific [place] 1.010 (1.005-1.030) Urine Protein Negative (Negative) Urine Glucose (UA) 250 A (Negative) mg/dL Urine Ketones Negative (Negative) Urine Blood Negative (Negative) Urine Nitrite Negative (Negative) Urine Bilirubin Negative (Negative) Urine Urobilinogen 0.2 (0.2) mg/dL Ur Leukocyte Esterase Trace A (Negative) U Hyaline Cast (Auto) NONE SEEN (0-2) /LPF Urine Microscopic RBC 0-2 (0-5) /HPF Urine Microscopic WBC 3-5 (0-5) /HPF Ur Epithelial Cells None Seen (None Seen) /HPF Urine Bacteria None Seen (None Seen) /HPF Urine Culture Reflexed NO (NO) 03/31/24 03/31/24 03/31/24 Range/Units 02:30 02:40 02:40 WBC 6.8 (3.98-10.04) x10^3/uL RBC 3.77 L (3.93-5.22) x10^6/uL Hgb 11.2 (11.2-15.7) g/dL Hct 33.5 L (34.1-44.9) % MCV 88.9 (79.4-94.8) fL MCH 29.7 (25.6-32.2) pg MCHC 33.4 (32.2-35.5) g/dL RDW 12.9 (11.7-14.4) % Plt Count 203 (182-369) x10^3/uL MPV 10.7 (9.4-12.3) fL Gran % (34.0-71.1) % Immature Gran % (Auto) (0.001-0.429) % Nucleat RBC Rel Count (0.00-0.2) % Eos # (Auto) (0.04-0.36) x10^3/uL Immature Gran # (Auto) (0.001-0.031) x10^3u/L Absolute Lymphs (auto) (1.18-3.74) x10^3/uL Absolute Monos (auto) (0.24-0.86) x10^3/uL Absolute Nucleated RBC (0.00-0.012) x10^3u/L Lymphocytes % (19.3-51.7) % Monocytes % (4.7-12.5) % Eosinophils % (0.7-5.8) % Basophils % (0.1-1.2) % Absolute Granulocytes (1.56-6.13) x10^3/uL Basophils # (0.01-0.08) x10^3/uL Sodium 128 L (135-145) mmol/L Potassium 3.9 (3.5-5.1) mmol/L Chloride 98 (98-107) mmol/L Carbon Dioxide 23 (22-30) mmol/L Anion Gap 10.9 (5-15) MEQ/L BUN 26 H (7-17) mg/dL Creatinine 1.46 H (0.52-1.04) mg/dL Estimated GFR 34.6 ML/MIN Glucose 281 H (74-106) mg/dL POC Glucometer (74 to 106) mg/dL Lactic Acid (0.4-2.0) Calcium 8.6 (8.4-10.2) mg/dL Magnesium (1.6-2.3) mg/dL Total Bilirubin 0.30 (0.2-1.3) mg/dL AST 26 (14-36) U/L ALT 17 (0-35) U/L Alkaline Phosphatase 48 (38-126) U/L Troponin I 0.049 H* (0.000-0.033) ng/mL Serum Total Protein 6.2 L (6.3-8.2) g/dL Albumin 3.6 (3.5-5.0) g/dL Urine Color (Yellow) Urine Appearance (Clear) Urine pH (4.6-8.0) Ur Specific [place] (1.005-1.030) Urine Protein (Negative) Urine Glucose (UA) (Negative) mg/dL Urine Ketones (Negative) Urine Blood (Negative) Urine Nitrite (Negative) Urine Bilirubin (Negative) Urine Urobilinogen (0.2) mg/dL Ur Leukocyte Esterase (Negative) U Hyaline Cast (Auto) (0-2) /LPF Urine Microscopic RBC (0-5) /HPF Urine Microscopic WBC (0-5) /HPF Ur Epithelial Cells (None Seen) /HPF Urine Bacteria (None Seen) /HPF Urine Culture Reflexed (NO) 03/31/24 03/31/24 03/31/24 Range/Units 02:40 07:29 08:04 WBC (3.98-10.04) x10^3/uL RBC (3.93-5.22) x10^6/uL Hgb (11.2-15.7) g/dL Hct (34.1-44.9) % MCV (79.4-94.8) fL MCH (25.6-32.2) pg MCHC (32.2-35.5) g/dL RDW (11.7-14.4) % Plt Count (182-369) x10^3/uL MPV (9.4-12.3) fL Gran % (34.0-71.1) % Immature Gran % (Auto) (0.001-0.429) % Nucleat RBC Rel Count (0.00-0.2) % Eos # (Auto) (0.04-0.36) x10^3/uL Immature Gran # (Auto) (0.001-0.031) x10^3u/L Absolute Lymphs (auto) (1.18-3.74) x10^3/uL Absolute Monos (auto) (0.24-0.86) x10^3/uL Absolute Nucleated RBC (0.00-0.012) x10^3u/L Lymphocytes % (19.3-51.7) % Monocytes % (4.7-12.5) % Eosinophils % (0.7-5.8) % Basophils % (0.1-1.2) % Absolute Granulocytes (1.56-6.13) x10^3/uL Basophils # (0.01-0.08) x10^3/uL Sodium (135-145) mmol/L Potassium (3.5-5.1) mmol/L Chloride (98-107) mmol/L Carbon Dioxide (22-30) mmol/L Anion Gap (5-15) MEQ/L BUN (7-17) mg/dL Creatinine (0.52-1.04) mg/dL Estimated GFR ML/MIN Glucose (74-106) mg/dL POC Glucometer 112 H (74 to 106) mg/dL Lactic Acid (0.4-2.0) Calcium (8.4-10.2) mg/dL Magnesium 2.1 (1.6-2.3) mg/dL Total Bilirubin (0.2-1.3) mg/dL AST (14-36) U/L ALT (0-35) U/L Alkaline Phosphatase (38-126) U/L Troponin I 0.100 H* (0.000-0.033) ng/mL Serum Total Protein (6.3-8.2) g/dL Albumin (3.5-5.0) g/dL Urine Color (Yellow) Urine Appearance (Clear) Urine pH (4.6-8.0) Ur Specific [place] (1.005-1.030) Urine Protein (Negative) Urine Glucose (UA) (Negative) mg/dL Urine Ketones (Negative) Urine Blood (Negative) Urine Nitrite (Negative) Urine Bilirubin (Negative) Urine Urobilinogen (0.2) mg/dL Ur Leukocyte Esterase (Negative) U Hyaline Cast (Auto) (0-2) /LPF Urine Microscopic RBC (0-5) /HPF Urine Microscopic WBC (0-5) /HPF Ur Epithelial Cells (None Seen) /HPF Urine Bacteria (None Seen) /HPF Urine Culture Reflexed (NO) 03/31/24 Range/Units 11:43 WBC (3.98-10.04) x10^3/uL RBC (3.93-5.22) x10^6/uL Hgb (11.2-15.7) g/dL Hct (34.1-44.9) % MCV (79.4-94.8) fL MCH (25.6-32.2) pg MCHC (32.2-35.5) g/dL RDW (11.7-14.4) % Plt Count (182-369) x10^3/uL MPV (9.4-12.3) fL Gran % (34.0-71.1) % Immature Gran % (Auto) (0.001-0.429) % Nucleat RBC Rel Count (0.00-0.2) % Eos # (Auto) (0.04-0.36) x10^3/uL Immature Gran # (Auto) (0.001-0.031) x10^3u/L Absolute Lymphs (auto) (1.18-3.74) x10^3/uL Absolute Monos (auto) (0.24-0.86) x10^3/uL Absolute Nucleated RBC (0.00-0.012) x10^3u/L Lymphocytes % (19.3-51.7) % Monocytes % (4.7-12.5) % Eosinophils % (0.7-5.8) % Basophils % (0.1-1.2) % Absolute Granulocytes (1.56-6.13) x10^3/uL Basophils # (0.01-0.08) x10^3/uL Sodium (135-145) mmol/L Potassium (3.5-5.1) mmol/L Chloride (98-107) mmol/L Carbon Dioxide (22-30) mmol/L Anion Gap (5-15) MEQ/L BUN (7-17) mg/dL Creatinine (0.52-1.04) mg/dL Estimated GFR ML/MIN Glucose (74-106) mg/dL POC Glucometer 262 H (74 to 106) mg/dL Lactic Acid (0.4-2.0) Calcium (8.4-10.2) mg/dL Magnesium (1.6-2.3) mg/dL Total Bilirubin (0.2-1.3) mg/dL AST (14-36) U/L ALT (0-35) U/L Alkaline Phosphatase (38-126) U/L Troponin I (0.000-0.033) ng/mL Serum Total Protein (6.3-8.2) g/dL Albumin (3.5-5.0) g/dL Urine Color (Yellow) Urine Appearance (Clear) Urine pH (4.6-8.0) Ur Specific [place] (1.005-1.030) Urine Protein (Negative) Urine Glucose (UA) (Negative) mg/dL Urine Ketones (Negative) Urine Blood (Negative) Urine Nitrite (Negative) Urine Bilirubin (Negative) Urine Urobilinogen (0.2) mg/dL Ur Leukocyte Esterase (Negative) U Hyaline Cast (Auto) (0-2) /LPF Urine Microscopic RBC (0-5) /HPF Urine Microscopic WBC (0-5) /HPF Ur Epithelial Cells (None Seen) /HPF Urine Bacteria (None Seen) /HPF Urine Culture Reflexed (NO) Accuchecks Date 03/31/24 Date 03/31/24 Date 03/30/24 Time 12:00 Time 08:11 Time 16:42 - Radiology Impressions Radiology Exams & Impressions: Radiology Procedures Category Date Time Status CHEST 1 VIEW (PORTABLE) Stat Exams 03/30/24 16:36 Completed ECHO W/2D AND DOPPLER [US] Routine Exams 03/31/24 00:58 Taken HEAD WITHOUT CONTRAST [CT] Stat Exams 03/30/24 16:36 Completed Assessment/Plan (1) Hypertensive urgency Current Visit: Yes Status: Acute Assessment & Plan: ASSESSMENT 1. Hypertensive Urgency 2. Dizziness 3. Weakness 4. Acute Kidney Injury 5. Non-ST Elevation Myocardial Infarction Type II 6. Hyponatremia 7. Hypertension 8. Hyperlipidemia 9. Type II Diabetes Mellitus 10. Coronary Artery Disease s/p CABG PLAN 1. Symptoms have improved 2. Blood pressure improved - given admission BP, I am comfortable with her being in the 180s/90s for now 3. She will require aggressive RPP control given her DM2 and CAD 4. Gentle fluids 5. Monitor sodium 6. Monitor Cr - should improve with fluids 7. Restart home antihypertensives - will require titration and modification 8. Echo in AM; no need for therapeutic AC SCDs The entirety of this encounter was done via telemedicine with audio and visual. Consent was obtained for a telemedicine encounter. Haris Schneider MD Pulmonary and Critical Care Medicine Code(s): I16.0 - HYPERTENSIVE URGENCY Telemedicine Encounter - Telemedicine Encounter Telemedicine Encounter: "The entirety of this encounter was performed via Telemedicine" This visit was performed using real-time audio and video connection between my location and thepatients locationwith the assistance of a surrogateat the patients location. Written or verbal consent was obtained from the patient/guardian to perform this visit usingncReplyBuylemedicine technology. Any patient questions regarding the telemedicine interaction were answered.
[2024-03-31] MEDS: HUMALOG SQ SCH (16:30)
[2024-03-31] MEDS: Lactated Ringers 1,000 ML IV SCH (16:33)
[2024-03-31] MEDS ORDERED: NORVASC 5 MG PO SCH (17:37)
[2024-03-31] MEDS: NORVASC 5 MG PO ONE (17:49)
[2024-03-31] MEDS: HUMALOG SQ PRN (18:54)
[2024-04-01 05:37] LABS: Absolute Neutrophil Ct (ANC) 4.93 x10^3/uL (1.56-6.13); BASOPHIL % 0.3 % (0.1-1.2); Basophil (Absolute #) 0.02 x10^3/uL (0.01-0.08); Eosinophil % 1.8 % (0.7-5.8); Eosinophil (Absolute #) 0.12 x10^3/uL (0.04-0.36); Hemoglobin 11.3 g/dL (11.2-15.7); IMMATURE GRAN # 0.02 x10^3u/L (0.001-0.031); IMMATURE GRAN % 0.3 % (0.001-0.429); Lymphocyte (Absolute #) 1.31 x10^3/uL (1.18-3.74); Lymphocytes % 19.1 % (19.3-51.7); Mean Cell Volume 88.3 fL (79.4-94.8); Mean Corpuscular Hemoglobin 29.4 pg (25.6-32.2); Mean Corpuscular Hgb Concent. 33.2 g/dL (32.2-35.5); Mean Platelet Volume 10.4 fL (9.4-12.3); Monocyte (Absolute #) 0.45 x10^3/uL (0.24-0.86); Monocytes % 6.6 % (4.7-12.5); Neutrophil % 71.9 % (34.0-71.1); Platelet Count 195 x10^3/uL (182-369); Red Blood Count 3.85 x10^6/uL (3.93-5.22); Red Cell Distribution Width 12.8 % (11.7-14.4); White Blood Count 6.9 x10^3/uL (3.98-10.04)
[2024-04-01 05:52] LABS: ALBUMIN 3.4 g/dL (3.5-5.0); BILIRUBIN,TOTAL 0.3 mg/dL (0.2-1.3); Calcium 8.4 mg/dL (8.4-10.2); Creatinine 1 1.14 mg/dL (0.52-1.04); EST GLOMERULAR FILTRATION RATE 46.6 ML/MIN; Potassium 3.9 mmol/L (3.5-5.1)
[2024-04-01 07:50] VITALS: BP 166/84; PULSE 68; RESP 18; TEMP 97.6; O2SAT 95
[2024-04-01] MEDS: NORVASC 5 MG PO SCH (10:09)
--- NOTE | 2024-04-01 12:22 | PCM.DS ---
Discharge Summary Date of Admission: 03/30/24 21:22 Date of Discharge: 04/01/24 Admitting Physician: TRAE COREAS MD Primary Care Provider: AFTAB HOLDER DO Allergies Allergies Penicillins Allergy (Verified 03/30/24 16:18) Hives codeine Adverse Reaction (Verified 03/30/24 16:18) HYPER Hospital Summary - Hospital Course Hospital Course: Ms. Brooks is an 88 year-old female with HTN, HLD, DM2, and CAD s/p CABG who presents with weakness and dizziness. She admits to one day of these symptoms in the setting of not having taken her blood pressure medications today, and upon arrival, her blood pressure was noted to be 260s/140s. Laboratory data was remarable for an elevated troponin, an CATALINA, and hyponatremia, while imaging was unremarkable. On my examination, her blood pressure is now 180s/90s, and she currently denies fevers, chills, nausea, vomiting, diarrhea, syncope, presyncope, visual changes, orthopnea, PND, odynophagia, dysphagia, chest pain, shortness of breath, belly pain, dysuria, hematuria, melena, hematochezia, or n eurological changes. All other systems were reviewed and were negative. Symptoms resolved since admission. BP is controlled. Advised patient on the importance of compliance with medications. Labs stable. Patient requesting discharge. No medication changes. Discharge Note Follow Up: PCP Results pending: Outpatient testing to order: Latest Assessment & Plan (1) Hypertensive urgency Current Visit: Yes Status: Acute Assessment & Plan: ASSESSMENT 1. Hypertensive Urgency 2. Dizziness 3. Weakness 4. Acute Kidney Injury 5. Non-ST Elevation Myocardial Infarction Type II 6. Hyponatremia 7. Hypertension 8. Hyperlipidemia 9. Type II Diabetes Mellitus 10. Coronary Artery Disease s/p CABG PLAN 1. Symptoms have improved 2. Blood pressure improved - given admission BP, I am comfortable with her being in the 180s/90s for now 3. She will require aggressive RPP control given her DM2 and CAD 4. Gentle fluids 5. Monitor sodium 6. Monitor Cr - should improve with fluids 7. Restart home antihypertensives - will require titration and modification 8. Echo in AM; no need for therapeutic AC I spent 35 minutes [id number] with the patient on the day of discharge performing discharge exam, discussing hospital stay and discharge instructions with patient and caregivers, preparation of discharge records, prescriptions & referral forms and addressing any questions/concerns the patient had as documented above. - Vitals & Intake/Output Vital Signs: Vital Signs Temperature 97.6 F 04/01/24 07:49 Pulse Rate 68 04/01/24 07:49 Respiratory Rate 18 04/01/24 07:49 Blood Pressure 166/84 04/01/24 07:49 O2 Sat by Pulse Oximetry 95 04/01/24 07:49 Intake & Output: Intake & Output 03/30/24 03/31/24 04/01/24 04/02/24 11:59 11:59 11:59 11:59 Intake Total 880 2565 Balance 880 2565 Weight 57 kg - Lab Result Diagrams: 04/01/24 05:05 04/01/24 05:05 Lab Results-Last 24 Hrs: Lab Results-Last 24 Hours 03/31/24 03/31/24 03/31/24 Range/Units 16:40 18:33 20:40 WBC (3.98-10.04) x10^3/uL RBC (3.93-5.22) x10^6/uL Hgb (11.2-15.7) g/dL Hct (34.1-44.9) % MCV (79.4-94.8) fL MCH (25.6-32.2) pg MCHC (32.2-35.5) g/dL RDW (11.7-14.4) % Plt Count (182-369) x10^3/uL MPV (9.4-12.3) fL Gran % (34.0-71.1) % Immature Gran % (Auto) (0.001-0.429) % Nucleat RBC Rel Count (0.00-0.2) % Eos # (Auto) (0.04-0.36) x10^3/uL Immature Gran # (Auto) (0.001-0.031) x10^3u/L Absolute Lymphs (auto) (1.18-3.74) x10^3/uL Absolute Monos (auto) (0.24-0.86) x10^3/uL Absolute Nucleated RBC (0.00-0.012) x10^3u/L Lymphocytes % (19.3-51.7) % Monocytes % (4.7-12.5) % Eosinophils % (0.7-5.8) % Basophils % (0.1-1.2) % Absolute Granulocytes (1.56-6.13) x10^3/uL Basophils # (0.01-0.08) x10^3/uL Sodium (135-145) mmol/L Potassium (3.5-5.1) mmol/L Chloride (98-107) mmol/L Carbon Dioxide (22-30) mmol/L Anion Gap (5-15) MEQ/L BUN (7-17) mg/dL Creatinine (0.52-1.04) mg/dL Estimated GFR ML/MIN Glucose (74-106) mg/dL POC Glucometer 392 H 295 H 43 L* (74 to 106) mg/dL Calcium (8.4-10.2) mg/dL Total Bilirubin (0.2-1.3) mg/dL AST (14-36) U/L ALT (0-35) U/L Alkaline Phosphatase (38-126) U/L Serum Total Protein (6.3-8.2) g/dL Albumin (3.5-5.0) g/dL 03/31/24 04/01/24 04/01/24 Range/Units 21:36 05:05 05:05 WBC 6.9 (3.98-10.04) x10^3/uL RBC 3.85 L (3.93-5.22) x10^6/uL Hgb 11.3 (11.2-15.7) g/dL Hct 34.0 L (34.1-44.9) % MCV 88.3 (79.4-94.8) fL MCH 29.4 (25.6-32.2) pg MCHC 33.2 (32.2-35.5) g/dL RDW 12.8 (11.7-14.4) % Plt Count 195 (182-369) x10^3/uL MPV 10.4 (9.4-12.3) fL Gran % 71.9 H (34.0-71.1) % Immature Gran % (Auto) 0.3 (0.001-0.429) % Nucleat RBC Rel Count 0.0 (0.00-0.2) % Eos # (Auto) 0.12 (0.04-0.36) x10^3/uL Immature Gran # (Auto) 0.02 (0.001-0.031) x10^3u/L Absolute Lymphs (auto) 1.31 (1.18-3.74) x10^3/uL Absolute Monos (auto) 0.45 (0.24-0.86) x10^3/uL Absolute Nucleated RBC 0.00 (0.00-0.012) x10^3u/L Lymphocytes % 19.1 L (19.3-51.7) % Monocytes % 6.6 (4.7-12.5) % Eosinophils % 1.8 (0.7-5.8) % Basophils % 0.3 (0.1-1.2) % Absolute Granulocytes 4.93 (1.56-6.13) x10^3/uL Basophils # 0.02 (0.01-0.08) x10^3/uL Sodium 130 L (135-145) mmol/L Potassium 3.9 (3.5-5.1) mmol/L Chloride 102 (98-107) mmol/L Carbon Dioxide 24 (22-30) mmol/L Anion Gap 8.0 (5-15) MEQ/L BUN 27 H (7-17) mg/dL Creatinine 1.14 H (0.52-1.04) mg/dL Estimated GFR 46.6 ML/MIN Glucose 229 H (74-106) mg/dL POC Glucometer 71 L (74 to 106) mg/dL Calcium 8.4 (8.4-10.2) mg/dL Total Bilirubin 0.30 (0.2-1.3) mg/dL AST 23 (14-36) U/L ALT 13 (0-35) U/L Alkaline Phosphatase 51 (38-126) U/L Serum Total Protein 6.0 L (6.3-8.2) g/dL Albumin 3.4 L (3.5-5.0) g/dL 04/01/24 04/01/24 Range/Units 07:19 10:59 WBC (3.98-10.04) x10^3/uL RBC (3.93-5.22) x10^6/uL Hgb (11.2-15.7) g/dL Hct (34.1-44.9) % MCV (79.4-94.8) fL MCH (25.6-32.2) pg MCHC (32.2-35.5) g/dL RDW (11.7-14.4) % Plt Count (182-369) x10^3/uL MPV (9.4-12.3) fL Gran % (34.0-71.1) % Immature Gran % (Auto) (0.001-0.429) % Nucleat RBC Rel Count (0.00-0.2) % Eos # (Auto) (0.04-0.36) x10^3/uL Immature Gran # (Auto) (0.001-0.031) x10^3u/L Absolute Lymphs (auto) (1.18-3.74) x10^3/uL Absolute Monos (auto) (0.24-0.86) x10^3/uL Absolute Nucleated RBC (0.00-0.012) x10^3u/L Lymphocytes % (19.3-51.7) % Monocytes % (4.7-12.5) % Eosinophils % (0.7-5.8) % Basophils % (0.1-1.2) % Absolute Granulocytes (1.56-6.13) x10^3/uL Basophils # (0.01-0.08) x10^3/uL Sodium (135-145) mmol/L Potassium (3.5-5.1) mmol/L Chloride (98-107) mmol/L Carbon Dioxide (22-30) mmol/L Anion Gap (5-15) MEQ/L BUN (7-17) mg/dL Creatinine (0.52-1.04) mg/dL Estimated GFR ML/MIN Glucose (74-106) mg/dL POC Glucometer 187 H 152 H (74 to 106) mg/dL Calcium (8.4-10.2) mg/dL Total Bilirubin (0.2-1.3) mg/dL AST (14-36) U/L ALT (0-35) U/L Alkaline Phosphatase (38-126) U/L Serum Total Protein (6.3-8.2) g/dL Albumin (3.5-5.0) g/dL Micro Results-Entire Visit: Accuchecks Date 04/01/24 Date 04/01/24 Date 03/31/24 Date 03/31/24 Time 11:21 Time 07:49 Time 22:00 Time 16:47 - Radiology Exams Ordered Rad Exams-Entire Visit: Radiology Procedures Category Date Time Status CHEST 1 VIEW (PORTABLE) Stat Exams 03/30/24 16:36 Completed ECHO W/2D AND DOPPLER [US] Routine Exams 03/31/24 00:58 Taken HEAD WITHOUT CONTRAST [CT] Stat Exams 03/30/24 16:36 Completed Discharge Exam General Appearance: no apparent distress Neurologic Exam: alert, oriented x 3, cooperative Eye Exam: PERRL Ears, Nose, Throat Exam: normal ENT inspection Neck Exam: normal inspection Respiratory Exam: normal breath sounds, lungs clear Cardiovascular Exam: regular rate/rhythm, normal heart sounds Gastrointestinal/Abdomen Exam: soft, normal bowel sounds Pelvic Exam: deferred Rectal Exam: deferred Back Exam: normal inspection Extremity Exam: normal inspection Skin Exam: normal color Final Diagnosis/Problem List - Final Discharge Diagnosis/Problem (1) Hypertensive urgency Current Visit: Yes Status: Acute Code(s): I16.0 - HYPERTENSIVE URGENCY (2) Weakness Current Visit: Yes Status: Acute Code(s): R53.1 - WEAKNESS (3) CATALINA (acute kidney injury) Current Visit: Yes Status: Acute Code(s): N17.9 - ACUTE KIDNEY FAILURE, UNSPECIFIED (4) HTN (hypertension) Current Visit: Yes Status: Acute Code(s): I10 - ESSENTIAL (PRIMARY) HYPERTENSION (5) Hyponatremia Current Visit: Yes Status: Acute Code(s): E87.1 - HYPO-OSMOLALITY AND HYPONATREMIA (6) HLD (hyperlipidemia) Current Visit: Yes Status: Acute Code(s): E78.5 - HYPERLIPIDEMIA, UNSPECIFIED (7) Type 2 diabetes mellitus Current Visit: Yes Status: Acute (8) Dizziness Current Visit: Yes Status: Acute Code(s): R42 - DIZZINESS AND GIDDINESS - Discharge Disposition: Home, Self-Care Condition: Stable Prescriptions: Continue Insulin Glargine [Lantus Insulin] 12 unit SQ DAILY Aspirin 81 gm Chew [Baby Aspirin 81 mg Chew] 81 mg PO DAILY Metoprolol Tartrate 25 mg [Lopressor 25MG Tab] 25 mg PO DAILY Amlodipine Besylate 5 mg [Norvasc 5 mg] 5 mg PO DAILY Insulin Lispro [Humalog] 100 unit SQ UD Follow up with: AFTAB HOLDER DO [Primary Care Provider] -
== END 2024-04-01 13:00 | disposition home or self-care (01) ==
LOC: ED 15:58 → MED SURG 21:22
PROVIDERS: ADMIT Internal Medicine Critical Care Medicine; ATTEND Internal Medicine Critical Care Medicine
DX: I16.0 Hypertensive urgency (principal); Z95.0 Presence of cardiac pacemaker; R53.1 Weakness; N17.9 Acute kidney failure, unspecified; I10 Essential (primary) hypertension; E87.1 Hypo-osmolality and hyponatremia; E78.5 Hyperlipidemia, unspecified; E11.9 Type 2 diabetes mellitus without complications; R42 Dizziness and giddiness; Z79.899 Other long term (current) drug therapy; I25.10 Atherosclerotic heart disease of native coronary artery without angina pectoris
CPT/HCPCS: 36415; 70450; 71045; 80053; 81001; 82947; 83605; 83735; 84484; 85025; 85027; 93005; 93041; 93306; 96374; 99285; G0378; J0360; J1817; Q3014; A9270-GY